=== PATIENT | female | born 1995 | race Hispanic/Latino ===

== ENCOUNTER 2024-02-01 08:17 | Emergency (ER) | payer OTHER ==
--- OUTSIDE RECORDS SUMMARY | 2024-02-01 08:23 | XMS REPORT | Continuity of Care Document ---
Author Name Unknown Address [address] [facility] [address] [place] [address] [facility] Address [address] [facility] [place] [address] Care Team Providers Care Business Development Associate Name Role Phone PCP, PATIENT DOES NOT HAVE A Primary Care Physic kang Unavailable MIRYAM BAKER Attending Clinician Unav DANIEL Gonzalez Attending Clinician Unavail able Samantha WHDaniel POOLE Attending Clinician + Kristin Vegas CNM Attending Clinician [phone] KRISTIN VEGAS Attending Clinician Unavailstuart bagley Lab, [place] Attending Clinician Unavailable [email or web address]_S Attending Clinician Unavaila kevyn Doctor Unassigned, [place] Attending Clinician U yovany Contreras SIDEWALK REPAIRER, Brittney Attending Clinician [phone] Visit, [place] Nurse Attending Clinician BRITTNEY Hercules Attending Clinician Unavailable Provider, [place] Temp Attending Clinician Kait Bryson Fernandes Attending Clinician + [phone] BRYSON JC Attending Clinician Unavailab CALLIE Bowers Attending Clinician Unavailable Miryam Baker MD Attending Clinician + Noe Castro MD, Asya Attending Clinician + Elise Marin MD Attending Clinician [phone] Fani MOORE, Uyen Attending Clinician [phone] Pob, [facility] Lab Main Attending Clinician Anila Sahni MD, Rosa Giron Attending Clinician [phone] ROSA SAHNI Attending Clinician Unavailable Ezra GARDINER, Callie Attending Clinician [phone] JEANIE ALANIS Attending Clinician Unavailkwaku Luo PT, Pamela Calhoun Attending Clinician Unavailab Jeanie Polanco MD Attending Clinician [phone] 2, [facility] Attending Clinician Unavailable 5, [facility] Attending Clinician Unavaila ble Ultrasound, [facility] Attending Clinician Unavaila ble Ultrasound, [facility] Attending Clinician Unavaila ble NOE CASTRO, BISHOP Attending Clinician Unav ailable Abiodun Munoz DO Attending Clinician [phone] ESTHER RUEDA Attending Clinician Unavailable MIRYAM BAKER Admitting Clinician Unav ailable [email or web address]_S Admitting Clinician UnavailMiryam Lau MD Admitting Clinician + ROSA SAHNI Admitting Clinician Unavailable ESTHER RUEDA Admitting Clinician Unavailable Payers Payer Name Policy Type Policy Number Effective Date Expirati on Date Source [facility] [id number] 2019 00:00:00 FAMILY [employer]ANNING PRATIMA [id number] 2023 00:00:00 MEDICAID [place] PENDING PENDING 2022 00:00:00 2022 00:00:00 [facility] [id number] EMERGENCY MEDICAID [id number] 2022 00:00:00 2022 00:00:00 Problems Condition Name Condition Details Condition Category Status Onset Date Resolution Date Last Treatment Date Treating Clinician Comments Source Dysuria Dysuria Disease Active 05-19 00:00: 00 [facility] care and examinatio n of lactating mother care and examinatio n of lactating mother Disease Active 705 00:00: 00 [facility] Anemia, Anemia, Disease Active 04-08 00:00: 00 [facility] History of bilateral tubal ligation History of bilateral tubal ligation Disease Active 04-08 00:00: 00 [facility] Pelvic cramping in antepartum period Pelvic cramping in antepartum period Disease Active 2020-10 0 00:00: 00 [facility] Left ovarian cyst Left ovarian cyst Disease Active 2020-10 0 00:00: 00 [facility] Well woman exam Well woman exam Disease Active 2017-10 00:00: 00 [facility] BMI 34.0-34.9, adult BMI 34.0-34.9, adult Disease Active 2017-10 00:00: 00 [facility] History of genital warts History of genital warts Disease Active 12-10 00:00: 00 [facility] Class 1 obesity due to excess calories with body mass index (BMI) of 34.0 to 34.9 in adult, unspecifie d whether serious comorbidit y present Class 1 obesity due to excess calories with body mass index (BMI) of 34.0 to 34.9 in adult, unspecifie d whether serious comorbidit y present Disease Active 12-10 00:00: 00 [facility] Class 1 obesity due to excess calories with body mass index (BMI) of 34.0 to 34.9 in adult, unspecifie d whether serious comorbidit y present Class 1 obesity due to excess calories with body mass index (BMI) of 34.0 to 34.9 in adult, unspecifie d whether serious comorbidit y present Disease Active 12-10 00:00: 00 [facility] Encounter for surveillan ce of other contracept ashkan Encounter for surveillan ce of other contracept ashkan Disease Active 03-28 00:00: 00 Overview: Formattin g of this note might be different from the original. 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 [facility] Asthma Asthma Disease Active 18 00:00: 00 Overview: Formattin g of this note might be different from the original. 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 [facility] Allergies, Adverse Reactions, Alerts Allergy Name Allergy Type Status Severity Reaction(s) Onset Date Inactive Date Treating Clinician Comments Source Penicill ins Propensi ty to adverse reaction s Active Rash 06-11 00:00: 00 And hives [facility] PENICILL INS Drug Class Active Rash 06-11 00:00: 00 [facility] POLLEN EXTRACTS DRUG INGREDI Active Other-Cmnt 06-11 00:00: 00 [facility] Penicill ins Propensi ty to adverse reaction s Active Rash 06-11 00:00: 00 And hives [facility] Pollen Extracts Propensi ty to adverse reaction s Active Other - See comments 06-11 00:00: 00 Sneezing and nose itch [facility] Social History Social Habit Start Date Stop Date Quantity Comments Source Gender identity [facility] Sexual orientation U [facility] ASSERTION [facility] Alcohol intake 2023-12-17 00:00:00 2023-12-17 00:00:00 Current non-drinker of alcohol (finding) [facility] History of Social function 2023-07-05 00:00:00 2023-07-05 00:00:00 [facility] Tobacco use and exposure 2023-07-05 00:00:00 2023-07-05 00:00:00 Smokeless tobacco non-user [facility] Exposure to SARS-CoV-2 (event) 2022-05-09 00:00:00 2022-05-19 13:02:00 Not sure [facility] Sex Assigned At 1995 00:00:00 1995 00:00:00 [facility] Smoking Status Start Date Stop Date Source Never smoked tobacco [facility] Medications Ordered Medication Name Filled Medication Name Start Date Stop Date Current Medication? Ordering Clinician Indication Dosage Frequency Signature (SIG) Comments Components Source fluconazole (DIFLUCAN) 150 mg tablet 3-13 00:00: 00 01-05 04:59 :00 No [id number] 150mg Take 1 tablet by mouth once now for 1 dose. [facility] cephALEXin 250 mg capsule - 00:00: 00 12-30 05:59 :00 Yes [id number] 250mg Take 1 capsule by mouth every 6 (six) hours for 10 days. [facility] metroNIDAZO LE 500 mg tablet 12-20 00:00: 00 12-21 05:59 :00 Yes [id number] 2000mg Take 4 tablets by mouth once now for 1 dose. [facility] clotrimazol e 1 % vaginal cream 2022-10 00:00: 00 12-17 00:00 :00 No [id number] 1{appli cator} Insert 1 Applicator into vagina at bedtime. [facility] cefTRIAXone (ROCEPHIN) injection 1,000 mg 2022-10 0-11 14:30: 00 08-04 13:50 :00 No [id number] 1000mg [facility] Nitrofurant oin&Nit. Macrocryst (MACROBID) 100 mg capsule 14 00:00: 00 07-19 04:59 :00 No [id number] 100mg Take 1 capsule by mouth in the morning and 1 capsule in the evening. Do all this for 10 days. [facility] metroNIDAZO LE 500 mg tablet 07-08 00:00: 00 07-16 04:59 :00 No [id number] 500mg Take 1 tablet by mouth in the morning and 1 tablet in the evening. Do all this for 7 days. [facility] phentermine 37.5 mg tablet 7-21 00:00: 00 12-17 00:00 :00 No 37.5mg Take 1 tablet by mouth in the morning. [facility] vit no.130-iron -folic ( VITAMIN) 6-15 00:00: 00 05-19 00:00 :00 No [id number] 1{tbl} Take 1 tablet by mouth daily. [facility] docusate 100 mg capsule 04-08 00:00: 00 05-19 00:00 :00 No [id number] 200mg Take 2 capsules by mouth once daily as needed for Constipati on. [facility] ferrous sulfate 325 mg (65 mg iron) tablet 04-08 00:00: 00 05-19 00:00 :00 No [id number] 325mg Take 1 tablet by mouth 2 (two) times daily. [facility] ibuprofen 600 mg tablet 04-08 00:00: 00 05-19 00:00 :00 No [id number] 600mg Take 1 tablet by mouth every 6 (six) hours as needed (Pain). Take with food or milk. [facility] HYDROcodone -acetaminop hen (NORCO) 5-325 mg tablet 04-08 00:00: 00 05-19 00:00 :00 No [id number] 1{tbl} Take 1 tablet by mouth every 6 (six) hours as needed for Pain (scale 7-10) for up to 5 doses. Indication s: acute pain [facility] albuterol (VENTOLIN HFA) 90 mcg/actuati on inhaler 01-08 00:00: 00 05-19 00:00 :00 No 2{puff} Inhale 2 Puffs every 6 (six) hours as needed for Wheezing or Shortness of Breath. [facility] Immunizations Ordered Immunization Name Filled Immunization Name Date Status Comments Source TDAP 2022-02-17 00:00:00 Completed [facility] TDAP 2022-02-17 00:00:00 Completed [facility] TDAP 2022-02-17 00:00:00 Completed [facility] TDAP 2022-02-17 00:00:00 Completed [facility] TDAP 2022-02-17 00:00:00 Completed [facility] TDAP 2022-02-17 00:00:00 Completed [facility] TDAP 2022-02-17 00:00:00 Completed [facility] TDAP 2022-02-17 00:00:00 Completed [facility] TDAP 2022-02-17 00:00:00 Completed [facility] SARS-COV-2 COVID-19 MODERNA VACCINE 2020-12-31 00:00:00 Completed [facility] SARS-COV-2 COVID-19 MODERNA 12+ YRS VACCINE 2020-12-31 00:00:00 Completed [facility] SARS-COV-2 COVID-19 MODERNA 12+ YRS VACCINE 2020-12-31 00:00:00 Completed [facility] SARS-COV-2 COVID-19 MODERNA 12+ YRS VACCINE 2020-12-31 00:00:00 Completed [facility] SARS-COV-2 COVID-19 MODERNA 12+ YRS VACCINE 2020-12-31 00:00:00 Completed [facility] SARS-COV-2 COVID-19 MODERNA 12+ YRS VACCINE 2020-12-31 00:00:00 Completed [facility] SARS-COV-2 COVID-19 MODERNA 12+ YRS VACCINE 2020-12-31 00:00:00 Completed [facility] SARS-COV-2 COVID-19 MODERNA 12+ YRS VACCINE 2020-12-31 00:00:00 Completed [facility] SARS-COV-2 COVID-19 MODERNA 12+ YRS VACCINE 2020-12-31 00:00:00 Completed [facility] SARS-COV-2 COVID-19 MODERNA VACCINE 2020-12-04 00:00:00 Completed [facility] SARS-COV-2 COVID-19 MODERNA 12+ YRS VACCINE 2020-12-04 00:00:00 Completed [facility] SARS-COV-2 COVID-19 MODERNA 12+ YRS VACCINE 2020-12-04 00:00:00 Completed [facility] SARS-COV-2 COVID-19 MODERNA 12+ YRS VACCINE 2020-12-04 00:00:00 Completed [facility] SARS-COV-2 COVID-19 MODERNA 12+ YRS VACCINE 2020-12-04 00:00:00 Completed [facility] SARS-COV-2 COVID-19 MODERNA 12+ YRS VACCINE 2020-12-04 00:00:00 Completed [facility] SARS-COV-2 COVID-19 MODERNA 12+ YRS VACCINE 2020-12-04 00:00:00 Completed [facility] SARS-COV-2 COVID-19 MODERNA 12+ YRS VACCINE 2020-12-04 00:00:00 Completed [facility] SARS-COV-2 COVID-19 MODERNA 12+ YRS VACCINE 2020-12-04 00:00:00 Completed [facility] TDAP 2020-01-15 00:00:00 Completed [facility] TDAP 2020-01-15 00:00:00 Completed [facility] TDAP 2020-01-15 00:00:00 Completed [facility] TDAP 2020-01-15 00:00:00 Completed [facility] TDAP 2020-01-15 00:00:00 Completed [facility] TDAP 2020-01-15 00:00:00 Completed [facility] TDAP 2020-01-15 00:00:00 Completed [facility] TDAP 2020-01-15 00:00:00 Completed [facility] TDAP 2020-01-15 00:00:00 Completed [facility] HPV9 2018-12-08 00:00:00 Completed [facility] HPV9 2018-12-08 00:00:00 Completed [facility] HPV9 2018-12-08 00:00:00 Completed [facility] HPV9 2018-12-08 00:00:00 Completed [facility] HPV9 2018-12-08 00:00:00 Completed [facility] HPV9 2018-12-08 00:00:00 Completed [facility] HPV9 2018-12-08 00:00:00 Completed [facility] HPV9 2018-12-08 00:00:00 Completed [facility] HPV9 2018-12-08 00:00:00 Completed [facility] HPV9 2018-08-06 00:00:00 Completed [facility] HPV9 2018-08-06 00:00:00 Completed [facility] HPV9 2018-08-06 00:00:00 Completed [facility] HPV9 2018-08-06 00:00:00 Completed [facility] HPV9 2018-08-06 00:00:00 Completed [facility] HPV9 2018-08-06 00:00:00 Completed [facility] HPV9 2018-08-06 00:00:00 Completed [facility] HPV9 2018-08-06 00:00:00 Completed [facility] HPV9 2018-08-06 00:00:00 Completed [facility] TDAP 2018-05-26 00:00:00 Completed [facility] TDAP 2018-05-26 00:00:00 Completed [facility] TDAP 2018-05-26 00:00:00 Completed [facility] TDAP 2018-05-26 00:00:00 Completed [facility] TDAP 2018-05-26 00:00:00 Completed [facility] TDAP 2018-05-26 00:00:00 Completed [facility] TDAP 2018-05-26 00:00:00 Completed [facility] TDAP 2018-05-26 00:00:00 Completed [facility] TDAP 2018-05-26 00:00:00 Completed [facility] HPV9 2017-11-05 00:00:00 Completed [facility] HPV9 2017-11-05 00:00:00 Completed [facility] HPV9 2017-11-05 00:00:00 Completed [facility] HPV9 2017-11-05 00:00:00 Completed [facility] HPV9 2017-11-05 00:00:00 Completed [facility] HPV9 2017-11-05 00:00:00 Completed [facility] HPV9 2017-11-05 00:00:00 Completed [facility] HPV9 2017-11-05 00:00:00 Completed [facility] HPV9 2017-11-05 00:00:00 Completed [facility] TDAP 2014-10-26 00:00:00 Completed [facility] TDAP 2014-10-26 00:00:00 Completed [facility] TDAP 2014-10-26 00:00:00 Completed [facility] TDAP 2014-10-26 00:00:00 Completed [facility] TDAP 2014-10-26 00:00:00 Completed [facility] TDAP 2014-10-26 00:00:00 Completed [facility] TDAP 2014-10-26 00:00:00 Completed [facility] TDAP 2014-10-26 00:00:00 Completed [facility] TDAP 2014-10-26 00:00:00 Completed [facility] TDAP 2009-07-02 00:00:00 Completed [facility] TDAP 2009-07-02 00:00:00 Completed [facility] TDAP 2009-07-02 00:00:00 Completed [facility] TDAP 2009-07-02 00:00:00 Completed [facility] TDAP 2009-07-02 00:00:00 Completed [facility] TDAP 2009-07-02 00:00:00 Completed [facility] TDAP 2009-07-02 00:00:00 Completed [facility] TDAP 2009-07-02 00:00:00 Completed [facility] TDAP 2009-07-02 00:00:00 Completed [facility] TDAP Unknown Completed [facility] TDAP Unknown Completed [facility] HPV9 Unknown Completed [facility] TDAP Unknown Completed [facility] HPV9 Unknown Completed [facility] HPV9 Unknown Completed [facility] TDAP Unknown Completed [facility] SARS-COV-2 COVID-19 MODERNA 12+ YRS VACCINE Unknown Completed [facility] SARS-COV-2 COVID-19 MODERNA 12+ YRS VACCINE Unknown Completed [facility] TDAP Unknown Completed [facility] TDAP Unknown Completed [facility] TDAP Unknown Completed [facility] HPV9 Unknown Completed [facility] TDAP Unknown Completed [facility] HPV9 Unknown Completed [facility] HPV9 Unknown Completed [facility] TDAP Unknown Completed [facility] SARS-COV-2 COVID-19 MODERNA 12+ YRS VACCINE Unknown Completed [facility] SARS-COV-2 COVID-19 MODERNA 12+ YRS VACCINE Unknown Completed [facility] TDAP Unknown Completed [facility] TDAP Unknown Completed [facility] TDAP Unknown Completed [facility] HPV9 Unknown Completed [facility] TDAP Unknown Completed [facility] HPV9 Unknown Completed [facility] HPV9 Unknown Completed [facility] TDAP Unknown Completed [facility] SARS-COV-2 COVID-19 MODERNA 12+ YRS VACCINE Unknown Completed [facility] SARS-COV-2 COVID-19 MODERNA 12+ YRS VACCINE Unknown Completed [facility] TDAP Unknown Completed [facility] TDAP Unknown Completed [facility] TDAP Unknown Completed [facility] HPV9 Unknown Completed [facility] TDAP Unknown Completed [facility] HPV9 Unknown Completed [facility] HPV9 Unknown Completed [facility] TDAP Unknown Completed [facility] SARS-COV-2 COVID-19 MODERNA 12+ YRS VACCINE Unknown Completed [facility] SARS-COV-2 COVID-19 MODERNA 12+ YRS VACCINE Unknown Completed [facility] TDAP Unknown Completed [facility] TDAP Unknown Completed [facility] TDAP Unknown Completed [facility] HPV9 Unknown Completed [facility] TDAP Unknown Completed [facility] HPV9 Unknown Completed [facility] HPV9 Unknown Completed [facility] TDAP Unknown Completed [facility] SARS-COV-2 COVID-19 MODERNA 12+ YRS VACCINE Unknown Completed [facility] SARS-COV-2 COVID-19 MODERNA 12+ YRS VACCINE Unknown Completed [facility] TDAP Unknown Completed [facility] TDAP Unknown Completed [facility] TDAP Unknown Completed [facility] HPV9 Unknown Completed [facility] TDAP Unknown Completed [facility] HPV9 Unknown Completed [facility] HPV9 Unknown Completed [facility] TDAP Unknown Completed [facility] SARS-COV-2 COVID-19 MODERNA 12+ YRS VACCINE Unknown Completed [facility] SARS-COV-2 COVID-19 MODERNA 12+ YRS VACCINE Unknown Completed [facility] TDAP Unknown Completed [facility] TDAP Unknown Completed [facility] TDAP Unknown Completed [facility] HPV9 Unknown Completed [facility] TDAP Unknown Completed [facility] HPV9 Unknown Completed [facility] HPV9 Unknown Completed [facility] TDAP Unknown Completed [facility] SARS-COV-2 COVID-19 MODERNA 12+ YRS VACCINE Unknown Completed [facility] SARS-COV-2 COVID-19 MODERNA 12+ YRS VACCINE Unknown Completed [facility] TDAP Unknown Completed [facility] TDAP Unknown Completed [facility] TDAP Unknown Completed [facility] HPV9 Unknown Completed [facility] TDAP Unknown Completed [facility] HPV9 Unknown Completed [facility] HPV9 Unknown Completed [facility] TDAP Unknown Completed [facility] SARS-COV-2 COVID-19 MODERNA 12+ YRS VACCINE Unknown Completed [facility] SARS-COV-2 COVID-19 MODERNA 12+ YRS VACCINE Unknown Completed [facility] TDAP Unknown Completed [facility] TDAP Unknown Completed [facility] TDAP Unknown Completed [facility] HPV9 Unknown Completed [facility] TDAP Unknown Completed [facility] HPV9 Unknown Completed [facility] HPV9 Unknown Completed [facility] TDAP Unknown Completed [facility] SARS-COV-2 COVID-19 MODERNA 12+ YRS VACCINE Unknown Completed [facility] SARS-COV-2 COVID-19 MODERNA 12+ YRS VACCINE Unknown Completed [facility] TDAP Unknown Completed [facility] TDAP Unknown Completed [facility] TDAP Unknown Completed [facility] HPV9 Unknown Completed [facility] TDAP Unknown Completed [facility] HPV9 Unknown Completed [facility] HPV9 Unknown Completed [facility] TDAP Unknown Completed [facility] SARS-COV-2 COVID-19 MODERNA 12+ YRS VACCINE Unknown Completed [facility] SARS-COV-2 COVID-19 MODERNA 12+ YRS VACCINE Unknown Completed [facility] [facility] [place] [facility] Unknown Completed [facility] TDAP Unknown [facility]pleted [facility] [place] TDAP Unknown [facility]pleted [facility] HPV9 Unknown Completed [facility] [place] TDAP Unknown Completed [facility] HPV9 Unknown Completed [facility] HPV9 Unknown Completed [facility] [place] TDAP Unknown Completed [facility] [place] SARS-COV-2 COVID-19 MODERNA 12+ YRS VACCINE Unknown Completed [facility] [place] SARS-COV-2 COVID-19 MODERNA 12+ YRS VACCINE Unknown Completed [facility] TDAP Unknown Completed [facility] TDAP Unknown Completed [facility] TDAP Unknown Completed [facility] HPV9 Unknown Completed [facility] TDAP Unknown [facility]pleted [facility] HPV9 Unknown Completed [facility] HPV9 Unknown Completed [facility] [place] TDAP Unknown Completed [facility] [place] SARS-COV-2 COVID-19 MODERNA 12+ YRS VACCINE Unknown Completed [facility] [place] SARS-COV-2 COVID-19 MODER[place] 12+ YRS VACCINE Unknown Completed [facility] TDAP Unknown Completed [facility] [place] TDAP Unknown Completed [facility] [place] TDAP Unknown [facility]pleted [facility] HPV9 Unknown Completed [facility] [place] TDAP Unknown Completed [facility] [place] HPV9 Unknown Completed [facility] [place] HPV9 Unknown Completed [facility] [place] TDAP Unknown Completed [facility] [place] SARS-COV-2 COVID-19 MODERNA 12+ YRS VACCINE Unknown Completed [facility] [place] SARS-COV-2 COVID-19 MODERNA 12+ YRS VACCINE Unknown Completed [facility] [place] TDAP Unknown Completed [facility] TDAP Unknown Completed [facility] TDAP Unknown Completed [facility] HPV9 Unknown Completed [facility] [place] TDAP Unknown Completed [facility] HPV9 Unknown Completed [facility] HPV9 Unknown Completed [facility] TDAP Unknown Completed [facility] [place] SARS-COV-2 COVID-19 MODERNA 12+ YRS VACCINE Unknown Completed [facility] [place] SARS-COV-2 COVID-19 MODERNA 12+ YRS VACCINE Unknown Completed [facility] TDAP Unknown Completed [facility] TDAP Unknown Completed [facility] TDAP Unknown Completed [facility] HPV9 Unknown Completed [facility] [place] TDAP Unknown Completed [facility] [place] HPV9 Unknown Completed [facility] HPV9 Unknown Completed [facility] TDAP Unknown Completed [facility] [place] SARS-COV-2 COVID-19 MODERNA 12+ YRS VACCINE Unknown Completed [facility] [place] SARS-COV-2 COVID-19 MODERNA 12+ YRS VACCINE Unknown Completed [facility] [place] TDAP Unknown Completed [facility] TDAP Unknown Completed [facility] TDAP Unknown Completed [facility] HPV9 Unknown Completed [facility] [place] TDAP Unknown Completed [facility] [place] HPV9 Unknown Completed [facility] HPV9 Unknown Completed [facility] TDAP Unknown Completed [facility] [place] SARS-COV-2 COVID-19 MODERNA 12+ YRS VACCINE Unknown Completed [facility] [place] SARS-COV-2 COVID-19 MODERNA 12+ YRS VACCINE Unknown Completed [facility] TDAP Unknown Completed [facility] [place] TDAP Unknown Completed [facility] TDAP Unknown Completed [facility] HPV9 Unknown Completed [facility] [place] TDAP Unknown Completed [facility] [place] HPV9 Unknown Completed [facility] HPV9 Unknown Completed [facility] [place] TDAP Unknown Completed [facility] [place] SARS-COV-2 COVID-19 MODERNA 12+ YRS VACCINE Unknown Completed [facility] [place] SARS-COV-2 COVID-19 MODERNA 12+ YRS VACCINE Unknown Completed [facility] [place] TDAP Unknown Completed [facility] [place] TDAP Unknown Completed [facility] [place] TDAP Unknown Completed [facility] HPV9 Unknown Completed [facility] [place] TDAP Unknown Completed [facility] [place] HPV9 Unknown Completed [facility] HPV9 Unknown Completed [facility] TDAP Unknown Completed [facility] [place] SARS-COV-2 COVID-19 MODERNA 12+ YRS VACCINE Unknown Completed [facility] [place] SARS-COV-2 COVID-19 MODERNA 12+ YRS VACCINE Unknown Completed [facility] TDAP Unknown Completed [facility] TDAP Unknown Completed [facility] TDAP Unknown Completed [facility] HPV9 Unknown Completed [facility] [place] TDAP Unknown Completed [facility] [place] HPV9 Unknown Completed [facility] HPV9 Unknown Completed [facility] TDAP Unknown Completed [facility] [place] SARS-COV-2 COVID-19 MODERNA 12+ YRS VACCINE Unknown Completed [facility] [place] SARS-COV-2 COVID-19 MODERNA 12+ YRS VACCINE Unknown Completed [facility] TDAP Unknown Completed [facility] [place] TDAP Unknown Completed [facility] TDAP Unknown Completed [facility] HPV9 Unknown Completed [facility] [place] TDAP Unknown Completed [facility] HPV9 Unknown Completed [facility] HPV9 Unknown Completed [facility] TDAP Unknown Completed [facility] [place] SARS-COV-2 COVID-19 MODERNA 12+ YRS VACCINE Unknown Completed [facility] [place] SARS-COV-2 COVID-19 MODERNA 12+ YRS VACCINE Unknown Completed [facility] TDAP Unknown Completed [facility] TDAP Unknown Completed [facility] TDAP Unknown Completed [facility] HPV9 Unknown Completed [facility] [place] TDAP Unknown Completed [facility] HPV9 Unknown Completed [facility] HPV9 Unknown Completed [facility] TDAP Unknown Completed [facility] [place] SARS-COV-2 COVID-19 MODERNA 12+ YRS VACCINE Unknown Completed [facility] [place] SARS-COV-2 COVID-19 MODERNA 12+ YRS VACCINE Unknown Completed [facility] TDAP Unknown Completed [facility] TDAP Unknown Completed [facility] TDAP Unknown Completed [facility] HPV9 Unknown Completed [facility] [place] TDAP Unknown Completed [facility] HPV9 Unknown Completed [facility] HPV9 Unknown Completed [facility] TDAP Unknown Completed [facility] [place] SARS-COV-2 COVID-19 MODERNA 12+ YRS VACCINE Unknown Completed [facility] [place] SARS-COV-2 COVID-19 MODERNA 12+ YRS VACCINE Unknown Completed [facility] TDAP Unknown Completed [facility] TDAP Unknown Completed [facility] TDAP Unknown Completed [facility] HPV9 Unknown Completed [facility] [place] TDAP Unknown Completed [facility] HPV9 Unknown Completed [facility] HPV9 Unknown Completed [facility] TDAP Unknown Completed [facility] [place] SARS-COV-2 COVID-19 MODERNA 12+ YRS VACCINE Unknown Completed [facility] SARS-COV-2 COVID-19 MODERNA 12+ YRS VACCINE Unknown Completed [facility] TDAP Unknown Completed [facility] Vital Signs Vital Name Observation Time Observation Value Comments S ource Systolic blood pressure 2024-01-05 12:55:00 105 mm[Hg] [place] [facility] Diastolic blood pressure 2024-01-05 12:55:00 70 mm[Hg] [place] [facility] Heart rate 2024-01-05 12:55:00 70 /[facility] 2024-01-05 12:55:00 36.06 Kayla [facility] Respiratory rate 2024-01-05 12:55:00 16 /min [facility] Body height 2024-01-05 12:55:00 152.4 cm [facility] Body weight 2024-01-05 12:55:00 64.003 kg [facility] BMI 2024-01-05 12:55:00 27.56 kg/m2 [facility] Systolic blood pressure 2023-12-17 15:29:00 113 mm[Hg] [facility] Diastolic blood pressure 2023-12-17 15:29:00 66 mm[Hg] [facility] Heart rate 2023-12-17 15:29:00 78 /min Un[facility] Body temperature 2023-12-17 15:29:00 36.06 Kayla [facility] Respiratory rate 2023-12-17 15:29:00 18 /min [facility] Body height 2023-12-17 15:29:00 152.4 cm [facility] Body weight 2023-12-17 15:29:00 58.786 kg [facility] BMI 2023-12-17 15:29:00 25.31 kg/m2 [facility] Systolic blood pressure 2023-10-04 19:13:00 113 mm[Hg] [facility] Diastolic blood pressure 2023-10-04 19:13:00 69 mm[Hg] [facility] Heart rate 2023-10-04 19:13:00 85 /min [facility] Body temperature 2023-10-04 19:13:00 36.61 Kayla [facility] Respiratory rate 2023-10-04 19:13:00 18 /min [facility] Body height 2023-10-04 19:13:00 152.4 cm [facility] Body weight 2023-10-04 19:13:00 63.05 kg [facility] BMI 2023-10-04 19:13:00 27.15 kg/m2 [facility] Systolic blood pressure 2023-08-04 13:16:00 126 mm[Hg] [facility] Diastolic blood pressure 2023-08-04 13:16:00 82 mm[Hg] [facility] Heart rate 2023-08-04 13:16:00 82 /min [facility] Body temperature 2023-08-04 13:16:00 36.39 Kayla [facility] Respiratory rate 2023-08-04 13:16:00 18 /min [facility] Body height 2023-08-04 13:16:00 152.4 cm [facility] Body weight 2023-08-04 13:16:00 72.122 kg [facility] BMI 2023-08-04 13:16:00 31.05 kg/m2 [facility] Systolic blood pressure 2023-07-26 13:20:00 115 mm[Hg] [place] [facility] Diastolic blood pressure 2023-07-26 13:20:00 80 mm[Hg] [facility] Heart rate 2023-07-26 13:20:00 93 /min [facility] Body temperature 2023-07-26 13:20:00 36.94 Kayla [facility] Respiratory rate 2023-07-26 13:20:00 18 /min [facility] Body height 2023-07-26 13:20:00 152.4 cm [facility] Body weight 2023-07-26 13:20:00 71.124 kg [facility] BMI 2023-07-26 13:20:00 30.62 kg/m2 [facility] Systolic blood pressure 2023-07-08 20:15:00 123 mm[Hg] [facility] Diastolic blood pressure 2023-07-08 20:15:00 76 mm[Hg] [facility] Heart rate 2023-07-08 20:15:00 91 /min [facility] Body temperature 2023-07-08 20:15:00 36.56 Kayla [facility] Respiratory rate 2023-07-08 20:15:00 18 /min [facility] Body weight 2023-07-08 20:15:00 71.396 kg [facility] BMI 2023-07-08 20:15:00 30.74 kg/m2 [facility] Systolic blood pressure 2023-07-05 14:00:00 128 mm[Hg] [facility] Diastolic blood pressure 2023-07-05 14:00:00 83 mm[Hg] [facility] Heart rate 2023-07-05 14:00:00 72 /min [facility] Body temperature 2023-07-05 14:00:00 36.11 Kayla [facility] Respiratory rate 2023-07-05 14:00:00 18 /min [facility] Body height 2023-07-05 14:00:00 152.4 cm [facility] Body weight 2023-07-05 14:00:00 74.447 kg [facility] BMI 2023-07-05 14:00:00 32.05 kg/m2 [facility] Systolic blood pressure 2022-05-19 18:04:00 112 mm[Hg] [facility] Diastolic blood pressure 2022-05-19 18:04:00 77 mm[Hg] [facility] Heart rate 2022-05-19 18:04:00 89 /min [facility] 2022-05-19 18:04:00 36.89 Kayla [facility] Respiratory rate 2022-05-19 18:04:00 18 /min [facility] Body height 2022-05-19 18:04:00 152.4 cm [facility] Body weight 2022-05-19 18:04:00 80.015 kg [facility] BMI 2022-05-19 18:04:00 34.45 kg/m2 [facility] Procedures Procedure Date / Time Performed Performing Clinician Source GC & CHLAMYDIA AMPLIFIED ASSAY 2023-10-04 21:12:00 Daniel Singh [facility] PAP SMEAR-LIQUID BASED-CP 2023-10-04 21:12:00 Daniel Singh [facility] URINE CULTURE 2023-09-01 18:16:00 Daniel Singh [facility] EXTERNAL PROVIDER RECORDS 2023-08-03 05:01:00 Doctor Unassigned, [place] [facility] EXTERNAL PROVIDER RECORDS 2023-07-16 05:01:00 Doctor Unassigned, [place] [facility] POCT TEST 2023-07-05 16:10:00 Brittney Contreras [facility] THYROID STIMULATING HORMONE 2023-07-05 15:30:00 Brittney Contreras [facility] COMP. METABOLIC PANEL ([id number]) 2023-07-05 15:30:00 Brittney Contreras [facility] CBC WITH DIFF 2023-07-05 15:30:00 Brittney Contreras [facility] HEPATITIS B SURFACE ANTIGEN 2023-07-05 15:30[facility] 2023-07-05 [facility]:30[facility]-AB WITH REFLEX 2023-07-05 15:30:00 Brittney Contreras [facility] POCT URINALYSIS W/O SPECIFIC GRAVITY 2023-07-05 14:04:00 Brittney Contreras [facility] CONSENT/REFUSAL FOR DIAGNOSIS AND TREATMENT 2023-07-05 13:14:22 Doctor Unassigned, [place] [facility] POCT URINALYSIS W/O SPECIFIC GRAVITY 2022-05-19 18:09:00 Bryson Jc [facility] Encounters Start Date/Time End Date/Time Encounter Type Admission Type Attending Clinicians Care Facility Care Department Encounter ID Source 2022-04-06 14:04:00 Inpatient P MIRYAM BKAER [facility] [place] [id number] [facility] 2021-08-21 22:49:19 Outpatient [facility] [id number] [facility] 2024-01-05 07:45:00 2024-01-05 08:22:23 Outpatient R DANIEL SINGH [facility] [id number] [facility] 2024-01-05 07:45:00 2024-01-05 08:22:23 Office Visit Daniel Singh [facility] .840.114 350.1.13.10 4.2.7.2.686 [id number] 107 [id number] [facility] 2023-12-20 00:00:00 2023-12-20 00:00:00 Telephone Kristin Vegas [facility] .840.114 350.1.13.10 4.2.7.2.686 [id number] 107 [id number] [facility] 2023-12-17 09:30:00 2023-12-17 09:56:30 Outpatient R KRISTIN VEGAS [facility] [id number] [facility] 2023-12-17 09:30:00 2023-12-17 09:56:30 Office Visit Kristin Vegas [facility] .840.114 350.1.13.10 4.2.7.2.686 [id number] 107 [id number] [facility] 2023-10-04 13:30:00 2023-10-04 13:54:08 Outpatient R DANIEL SINGH [facility] [id number] [facility] 2023-10-04 13:30:00 2023-10-04 13:54:08 Office Visit Daniel Singh [facility] .840.114 350.1.13.10 4.2.7.2.686 [id number] [facility] 2023-09-01 08:30:00 2023-09-01 08:42:49 Outpatient R DANIEL SINGH [facility] [id number] [facility] 2023-09-01 08:30:00 2023-09-01 08:42:49 Supervisor Sample Visit Lab, Ang-Rmchp Daniel Singh [facility] [id number] 350.1.13.10 4.2.7.2.686 [id number] [facility] 2023-09-01 00:00:00 2023-09-01 00:00:00 Telephone Daniel Singh [facility] & CHILD [facility] 1.2840.114 350.1.13.10 4.2.7.2.686 [id number] [facility] 2023-08-24 00:00:00 2023-08-24 00:00:00 Outpatient [id number] [email or web address]_S [facility] [id number] [facility] 2023-08-04 08:00:00 2023-08-04 09:05:10 Outpatient R DANIEL SINGH [facility] [id number] [facility] 2023-08-04 08:00:00 2023-08-04 09:05:10 Office Visit Daniel Singh [facility] & CHILD [facility] 1.840.114 350.1.13.10 4.2.7.2.686 [id number] [facility] 2023-08-03 00:00:00 2023-08-03 00:00:00 Orders Only Doctor Unassigned, [place] [facility] 1.840.114 350.1.13.10 4.2.7.2.686 [id number] [facility] 2023-08-02 00:00:00 2023-08-02 00:00:00 Telephone Daniel Singh [facility] & CHILD [facility] 1.2840.114 350.1.13.10 4.2.7.2.686 [id number] 107 [id number] [facility] 2023-07-30 00:00:00 2023-07-30 00:00:00 Telephone Daniel Singh [facility] & CHILD [facility] 1.2.840.114 350.1.13.10 4.2.7.2.686 [id number] 107 [id number] [facility] 2023-07-26 08:00:00 2023-07-26 08:59:25 Outpatient R DANIEL SINGH [facility] [id number] [facility] 2023-07-26 08:00:00 2023-07-26 08:59:25 Office Visit Daniel Singh [facility] NET[facility] & CHILD [facility] 1.2.840.114 350.1.13.10 4.2.7.2.686 [id number] [facility] 2023-07-21 00:00:00 2023-07-21 00:00:00 Telephone Daniel Singh [facility] & CHILD [facility] 1.2.840.114 350.1.13.10 4.2.7.2.686 [id number] [facility] 2023-07-21 00:00:00 2023-07-21 00:00:00 Telephone Daniel Singh [facility]WORK [facility] 1.2.840.114 350.1.13.10 4.2.7.2.686 [id number] [facility] 2023-07-16 00:00:00 2023-07-16 00:00:00 Orders Only Doctor Unassigned, [place] [facility] 1.2840.114 350.1.13.10 4.2.7.2.686 [id number] [facility] 2023-07-13 00:00:00 2023-07-13 00:00:00 Telephone Brittney Contreras [facility] & CHILD [facility] 1.2840.114 350.1.13.10 4.2.7.2.686 [id number] [facility] 2023-07-08 15:00:00 2023-07-08 15:15:55 Outpatient R KRISTIN VEGAS [facility] [id number] [facility] 2023-07-08 15:00:00 2023-07-08 15:15:55 Nurse Visit Visit, [place] Nurse Kristin Vegas [facility]WORK [facility] 1.2.840.114 350.1.13.10 4.2.7.2.686 [id number] 107 [id number] [facility] 2023-07-08 00:00:00 2023-07-08 00:00:00 Telephone Daniel Singh [facility] 1.2.840.114 350.1.13.10 4.2.7.2.686 [id number] [facility] 2023-07-06 00:00:00 2023-07-06 00:00:00 Telephone Daniel Singh [facility] 1.2.840.114 350.1.13.10 4.2.7.2.686 [id number] [facility] 2023-07-06 00:00:00 2023-07-06 00:00:00 Telephone Daniel Singh [facility] 1.2.840.114 350.1.13.10 4.2.7.2.686 [id number] [facility] 2023-07-05 09:00:00 2023-07-05 10:28:51 Outpatient BRITTNEY ROSADO [facility] [id number] [facility] 2023-07-05 09:00:00 2023-07-05 10:28:51 Office Visit Provider, [place] Contreras Brittney [facility] NETWORK [facility] 1.84.114 350.1.13.10 4.2.7.2.686 [id number] [facility] 2023-07-05 00:00:00 2023-07-05 00:00:00 Orders Only Doctor Unassigned, [place] [facility] 1.84.114 350.1.13.10 4.2.7.2.686 [id number] [facility] 2022-05-19 12:45:00 2022-05-19 13:29:22 Office Visit Bryson Jc [facility] NETWORK [facility] & CHILD [facility] 1.840.114 350.1.13.10 4.2.7.2.686 [id number] [facility] 2022-05-19 12:45:00 2022-05-19 13:29:22 Outpatient BRYSON COUGHLIN [facility] [id number] [facility] 2022-05-19 12:45:00 2022-05-19 12:45:00 Outpatient R BRYSON JC [facility] [id number] [facility] 2022-04-28 08:00:00 2022-04-28 08:37:43 Outpatient R DANIEL SINGH [facility] [id number] [facility] 2022-04-28 08:00:00 2022-04-28 08:37:43 Office Visit Daniel Singh [facility] NET[facility] & CHILD [facility] 1.840.114 350.1.13.10 4.2.7.2.686 [id number] [facility] 2022-04-09 14:00:00 2022-04-09 14:00:00 Outpatient CALLIE [facility]EN [facility] [id number] [facility] 2022-04-06 14:04:00 2022-04-08 13:14:00 Inpatient P MIRYAM BAKER [facility]LINE [id number] [facility] 2022-04-06 14:04:00 2022-04-08 13:14:00 Hospital Encounter Miryam Baker [facility] 1.2.840.114 350.1.13.10 4.2.7.2.686 [id number] [facility] 2022-04-06 14:04:00 2022-04-08 13:14:00 Inpatient P MIRYAM BAKER [facility] [id number] [facility] 2022-04-07 06:55:00 2022-04-07 08:11:00 Surgery Noe kruger [facility] 1.2.840.114 350.1.13.10 4.2.7.2.686 [id number] [facility] 2022-04-06 19:20:00 2022-04-07 07:49:00 [facility] 1.2.840.114 350.1.13.10 4.2.7.2.686 [id number] [facility] 2022-04-06 14:04:00 2022-04-06 14:04:00 Inpatient P MIRYAM BAKER [facility] [id number] [facility] 2022-04-02 12:15:00 2022-04-02 12:30:00 Supervisor Sample Visit Pob, Adc Lab Rosa Menjivar [facility] 1.2.840.114 350.1.13.10 4.2.7.2.686 [id number] [facility] 2022-04-02 12:15:00 2022-04-02 12:15:00 Outpatient R ROSA SAHNI [facility] [id number] [facility] 2022-04-02 11:00:00 2022-04-02 12:01:44 Routine Visit Rosa Sahni [facility] 1.2.840.114 350.1.13.10 4.2.7.2.686 [id number] [facility] 2022-03-25 14:30:00 2022-03-25 14:30:00 Outpatient R [facility] [id number] [facility] 2022-03-25 14:30:00 2022-03-25 14:30:00 Outpatient R [facility] [id number] [facility] 2022-03-25 00:00:00 2022-03-25 00:00:00 Abstract Rosa Sahni [facility] 1.2.840.114 350.1.13.10 4.2.7.2.686 [id number] [facility] 2022-03-25 00:00:00 2022-03-25 00:00:00 Telephone Rosa Sahni [facility] 1.2.840.114 350.1.13.10 4.2.7.2.686 [id number] [facility] 2022-03-19 13:15:00 2022-03-19 14:01:42 Outpatient R EZRA CALLIE [facility] [id number] [facility] 2022-03-19 13:15:00 2022-03-19 14:01:42 Routine Visit Callie Bliss [facility] 1.2.840.114 350.1.13.10 4.2.7.2.686 [id number] [facility] 2022-03-18 13:00:00 2022-03-18 13:00:00 Outpatient R JEANIE ALANIS [facility] [id number] [facility] 2022-03-10 14:00:00 2022-03-10 16:03:18 Ancillary Visit Pamela Luo Craig L [facility] 1.2.840.114 350.1.13.10 4.2.7.2.686 [id number] [facility] 2022-03-10 14:00:00 2022-03-10 16:03:18 Outpatient JEANIE MARIE [facility] [id number] [facility] 2022-03-06 00:00:00 2022-03-06 00:00:00 Patient Secure Msg Doctor Unassigned, [place] [facility] 1.2.840.114 350.1.13.10 4.2.7.2.686 [id number] [facility] 2022-03-05 16:00:00 2022-03-05 17:10:09 Outpatient ROSA CARO [facility] [id number] [facility] 2022-03-05 16:00:00 2022-03-05 17:10:09 Routine Visit Rosa Sahni [facility] 1.2.840.114 350.1.13.10 4.2.7.2.686 [id number] [facility] 2022-02-23 08:00:00 2022-02-23 08:15:00 Supervisor Sample Visit 2, Adc Lab Eliud [facility] 1.2.840.114 350.1.13.10 4.2.7.2.686 [id number] [facility] 2022-02-23 08:00:00 2022-02-23 08:00:00 Outpatient ROSA CARO [facility] [id number] [facility] 2022-02-18 09:30:00 2022-02-18 09:30:00 Outpatient BRYSON COUGHLIN [facility] [id number] [facility] 2022-02-18 07:30:00 2022-02-18 07:45:00 Supervisor Sample Visit Pob, Adc Lab Main EliudRosa [facility] 1.114 350.1.13.10 4.2.7.2.686 [id number] [facility] 2022-02-18 07:30:00 2022-02-18 07:30:00 Outpatient R ROSA SAHNI [facility] [id number] [facility] 2022-02-18 00:00:00 2022-02-18 00:00:00 Case Management Ezra [facility] 1.114 350.1.13.10 4.2.7.2.686 [id number] 134 [id number] [facility] 2022-02-17 16:15:00 2022-02-17 17:16:47 Outpatient R EZRA [facility] [id number] [facility] 2022-02-17 16:15:00 2022-02-17 17:16:47 Routine Visit Callie Bliss [facility] 1..114 350.1.13.10 4.2.7.2.686 [id number] 134 [id number] [facility] 2022-02-17 00:00:00 2022-02-17 00:00:00 Orders Only Doctor Unassigned, [place] [facility] 1..114 350.1.13.10 4.2.7.2.686 [id number] [facility] 2022-02-06 09:15:00 2022-02-06 10:00:00 Supervisor Sample Visit 5, [facility] Us Room Rosa Sahni Mack [facility] 1..114 350.1.13.10 4.2.7.2.686 [id number] [facility] 2022-02-06 09:15:00 2022-02-06 09:15:00 Outpatient R ROSA SAHNI [facility] [id number] [facility] 2022-02-04 15:30:00 2022-02-04 16:20:52 Supervisor Sample Visit Ultrasound, Belkis Baker Miryam Avery [facility] NETWORK [facility] 1..114 350.1.13.10 4.2.7.2.686 [id number] [facility] 2022-02-04 15:30:00 2022-02-04 15:30:00 Outpatient R SAMUELPRISCILAGay [facility] [id number] [facility] 2022-01-28 11:15:00 2022-01-28 11:15:00 Outpatient R ROSA SAHNI [facility] [id number] [facility] 2022-01-01 11:15:00 2022-01-01 11:15:00 Outpatient ROSA CARO [facility] [id number] [facility] 2021-12-31 16:15:00 2021-12-31 16:38:06 Outpatient R EZRA [facility] [id number] [facility] 2021-12-31 16:15:00 2021-12-31 16:38:06 Routine Visit Callie Bliss [facility] 1.84.114 350.1.13.10 4.2.7.2.686 [id number] [facility] 2021-12-09 11:00:00 2021-12-09 12:00:29 Supervisor Sample Visit Ultrasound, Asya Jordan [facility] 1.2840.114 350.1.13.10 4.2.7.2.686 [id number] 134 [id number] [facility] 2021-12-09 11:00:00 2021-12-09 11:00:00 Outpatient P NOE Kruger BISHOP [facility] [id number] [facility] 2021-11-25 00:00:00 2021-11-25 00:00:00 Telephone Rosa Sahni [facility] 1.2840.114 350.1.13.10 4.2.7.2.686 [id number] [facility] 2021-11-14 10:00:00 2021-11-14 10:15:00 Supervisor Sample Visit 2, Adc Lab Rosa Sahni [facility] 1.2.840.114 350.1.13.10 4.2.7.2.686 [id number] [facility] 2021-11-14 10:00:00 2021-11-14 10:00:00 Outpatient R ROSA SAHNI [facility] [id number] [facility] 2021-11-14 00:00:00 2021-11-14 00:00:00 Orders Only Doctor Unassigned, [place] [facility] 1.840.114 350.1.13.10 4.2.7.2.686 [id number] [facility] 2021-11-11 13:30:00 2021-11-11 13:49:21 Outpatient R ROSA SAHNI [facility] [id number] [facility] 2021-11-11 13:30:00 2021-11-11 13:49:21 Routine Visit Rosa Sahni [facility] 1.2840.114 350.1.13.10 4.2.7.2.686 [id number] [facility] 2021-11-05 11:00:00 2021-11-05 11:00:00 Outpatient R ROSA SAHNI [facility] [id number] [facility] 2021-10-21 00:00:00 2021-10-21 00:00:00 Telephone Rosa Sahni [facility] 1.2.840.114 350.1.13.10 4.2.7.2.686 [id number] 134 [id number] [facility] 2021-10-15 00:00:00 2021-10-15 00:00:00 Telephone Rosa Sahni [facility] 1.2.840.114 350.1.13.10 4.2.7.2.686 [id number] 134 [id number] [facility] 2021-10-15 00:00:00 2021-10-15 00:00:00 Telephone Rosa Sahni [facility] 1.2.840.114 350.1.13.10 4.2.7.2.686 [id number] 134 [id number] [facility] 2021-10-07 12:29:12 2021-10-07 12:44:12 Supervisor Sample Visit Pob, Adc Lab Main Rosa Sahni [facility] 1.2.840.114 350.1.13.10 4.2.7.2.686 [id number] [facility] 2021-10-07 12:30:00 2021-10-07 12:30:00 Outpatient R ROSA SAHNI [facility] [id number] [facility] 2021-10-07 11:35:13 2021-10-07 12:13:54 Routine Visit Callie Bliss [facility] 1.2.840.114 350.1.13.10 4.2.7.2.686 [id number] [facility] 2021-10-07 00:00:00 2021-10-07 00:00:00 Orders Only Doctor Unassigned, [place] [facility] 1.2840.114 350.1.13.10 4.2.7.2.686 [id number] [facility] 2021-09-12 08:00:00 2021-09-12 08:00:00 Outpatient R [facility] [id number] [facility] 2021-09-09 13:00:00 2021-09-09 13:36:41 Outpatient R ROSA SAHNI [facility] [id number] [facility] 2021-09-09 13:00:00 2021-09-09 13:36:41 Outpatient R ROSA SAHNI [facility] [id number] [facility] 2021-09-09 12:46:27 2021-09-09 13:36:41 Routine Visit Rosa Sahni [facility] 1..840.114 350.1.13.10 4.2.7.2.686 [id number] [facility] 2021-09-03 16:42:14 2021-09-03 23:59:00 Outpatient R ROSA SAHNI [facility] RAD [id number] [facility] 2021-09-03 16:42:14 2021-09-03 23:59:00 Hospital Encounter Rosa Sahni [facility] 1.2.840.114 350.1.13.10 4.2.7.2.686 [id number] [facility] 2021-08-26 00:00:00 2021-08-26 00:00:00 Case Management Rosa Sahni [facility]ILD[facility] 1.2.840.114 350.1.13.10 4.2.7.2.686 [id number] 134 [id number] [facility] 2021-08-25 13:21:58 2021-08-25 13:36:58 Supervisor Sample Visit Pob, Adc Lab Main Rosa Sahni [facility]ILD[facility] 1.2840.114 350.1.13.10 4.2.7.2.686 [id number] [facility] 2021-08-25 13:00:00 2021-08-25 13:00:00 Outpatient R ROSA SAHNI [facility] [id number] [facility] 2021-08-23 09:00:00 2021-08-23 09:00:00 Outpatient R [facility] [id number] [facility] 2021-08-20 15:29:22 2021-08-20 15:33:16 Supervisor Sample Visit 2, Adc Lab Rosa Sahni [facility] Building 1.2.840.114 350.1.13.10 4.2.7.2.686 [id number] [facility] 2021-08-20 14:02:53 2021-08-20 15:25:50 Initial Visit Rosa Sahni [facility] 1.2840.114 350.1.13.10 4.2.7.2.686 [id number] [facility] 2021-08-20 14:30:00 2021-08-20 14:30:00 Outpatient R ROSA SAHNI [facility] [id number] [facility] 2021-08-20 00:00:00 2021-08-20 00:00:00 Orders Only Doctor Unassigned, [place] [facility] 1.2840.114 350.1.13.10 4.2.7.2.686 [id number] [facility] 2021-01-14 00:00:00 2021-01-14 00:00:00 Patient Outreach Abiodun Munoz [facility] 1.2840.114 350.1.13.10 4.2.7.2.686 [id number] [facility] 2020-10-09 08:29:03 2020-10-09 08:53:03 Office Visit Bryson Jc [facility] NETWORK [facility] CHILD [facility] 1.2.840.114 350.1.13.10 4.2.7.2.686 [id number] [facility] 2020-10-09 08:15:00 2020-10-09 08:15:00 Outpatient BRYSON COUGHLIN [facility] [id number] [facility] 2020-05-06 10:30:00 2020-05-06 10:30:00 Outpatient R BRYSON JC [facility] [id number] [facility] 2020-05-06 07:50:31 2020-05-06 08:42:01 Office Visit Bryson Jc [facility] NETWORK [facility] CHILD [facility] 1..840.114 350.1.13.10 4.2.7.2.686 [id number] [facility] 2020-05-06 07:45:00 2020-05-06 07:45:00 Outpatient R BRYSON JC [facility] [id number] [facility] 2020-04-12 10:00:00 2020-04-12 10:00:00 Outpatient R BRYSON JC [facility] [id number] [facility] 2020-04-12 09:42:17 2020-04-12 09:57:17 Routine Visit Bryson Jc [facility] NETWORK [facility] CHILD [facility] 1..840.114 350.1.13.10 4.2.7.2.686 [id number] [facility] 2020-03-27 09:30:00 2020-03-27 09:30:00 Outpatient R BRYSON JC [facility] [id number] [facility] 2020-03-22 00:00:00 2020-03-22 00:00:00 Telephone Daniel Singh Sumaya [facility] NETWORK [facility] CHILD [facility] 1.2.840.114 350.1.13.10 4.2.7.2.686 [id number] [facility] 2020-03-19 12:52:40 2020-03-19 13:30:43 Routine Visit Bryson Jc [facility] NETWORK [facility]ILD [facility] 1.2.840.114 350.1.13.10 4.2.7.2.686 [id number] [facility] 2020-03-19 12:45:00 2020-03-19 12:45:00 Outpatient R BRYSON JC [facility] [id number] [facility] 2020-03-11 10:25:06 2020-03-11 10:40:06 Routine Visit Bryson Jc [facility] NETWORK [facility]ILD [facility] 1.2.840.114 350.1.13.10 4.2.7.2.686 [id number] [facility] 2020-03-11 10:30:00 2020-03-11 10:30:00 Outpatient BRYSON COUGHLIN [facility] [id number] [facility] 2020-03-11 00:00:00 2020-03-11 00:00:00 Orders Only Doctor Unassigned, [place] [facility] 1.2.840.114 350.1.13.10 4.2.7.2.686 [id number] [facility] 2020-02-29 14:45:00 2020-02-29 14:45:00 Outpatient R BRYSON JC [facility] [id number] [facility] 2020-02-29 12:33:40 2020-02-29 14:10:40 Telemedici ne Visit Bryson Jc [facility] NETWORK [facility] CHILD [facility] 1..840.114 350.1.13.10 4.2.7.2.686 [id number] [facility] 2020-02-15 14:30:00 2020-02-15 14:30:00 Outpatient R BRYSON JC [facility] [id number] [facility] 2020-02-15 13:15:00 2020-02-15 13:15:00 Outpatient R BRYSON JC [facility] [id number] [facility] 2020-02-15 08:55:41 2020-02-15 09:10:41 Telemedici ne Visit Bryson Jc [facility] NETWORK [facility] CHILD [facility] 1.840.114 350.1.13.10 4.2.7.2.686 [id number] [facility] 2020-02-01 15:15:00 2020-02-01 15:15:00 Outpatient R BRYSON JC [facility] [id number] [facility] 2020-02-01 12:37:41 2020-02-01 14:56:36 Telemedici ne Visit Bryson Jc [facility] NETWORK [facility] CHILD [facility] 1..840.114 350.1.13.10 4.2.7.2.686 [id number] [facility] 2020-01-29 10:45:00 2020-01-29 10:45:00 Outpatient R BRYSON JC [facility] [id number] [facility] 2020-01-15 12:49:02 2020-01-15 13:43:18 Routine Visit Bryson Jc [facility] NETWORK [facility] CHILD [facility] 1..840.114 350.1.13.10 4.2.7.2.686 [id number] [facility] 2020-01-15 12:45:00 2020-01-15 12:45:00 Outpatient R BRYSON JC [facility] [id number] [facility] 2020-01-15 00:00:00 2020-01-15 00:00:00 Orders Only Doctor Unassigned, [place] [facility] 1.2.840.114 350.1.13.10 4.2.7.2.686 [id number] [facility] 2019-12-25 12:46:31 2019-12-25 14:12:43 Routine Visit Chandana Jcstuart Wesley [facility] NETWORK [facility] CHILD [facility] 1.2.840.114 350.1.13.10 4.2.7.2.686 [id number] [facility] 2019-12-25 12:45:00 2019-12-25 12:45:00 Outpatient GRADY COUGHLINLEONORA [facility] [id number] [facility] 2019-11-27 13:08:30 2019-11-27 13:49:02 Routine Visit Chandana Jcstuart [facility] NETWORK [facility] CHILD [facility] 1.2.840.114 350.1.13.10 4.2.7.2.686 [id number] [facility] 2019-11-10 00:00:00 2019-11-10 00:00:00 Abstract Jennifer Jcmary [facility] NETWORK [facility] & CHILD [facility] 1.2.840.114 350.1.13.10 4.2.7.2.686 [id number] 107 [id number] [facility] 2019-09-05 19:34:42 2019-09-05 22:10:00 Emergency X RUEDA ESTHER [facility] ERT [id number] [facility] Results Test Description Test Time Test Comments Results Result Co mments [facility] [id number] 09:00:49* Test Item Value Reference Range Interpretation Comme nts HIV Semi-quantitative (test code = 27678-1) 0.08 Negative CHALO (test code = CHALO) Non-reactive for HIV-1 antigen and HIV-1/HIV-2 antibodies. ?No laboratory evidence of HIV infection. ?Repeat in 2-4 weeks if acute HIV infection is suspected. [facility] C [id number] 07:02:39* Test Item Value Reference Range Interpretation Comme nts HCV Ab (test code = 07479-7) Negative HCV Semi-Quantitative (test code = 64631-8) 0.01 [facility] C [id number] 07:02:39* Test Item Value Reference Range Interpretation Comme nts HCV Ab (test code = 81488-8) Negative HCV Semi-Quantitative (test code = 18563-6) 0.01 [facility] [id number] 06:44:58 * Test Item Value Reference Range Interpretation Comme nts TSH (test code = 9080169023) 1.68 See_Comment [Automated [employer]] The system which generated this result transmitted reference range: 0.45 - 4.70 mIU/L. The reference range was not used to interpret this result as normal/abnormal. Lab Interpretation (test code = 99230-3) Normal [facility] B SURFACE [id number] 06:44:58 * Test Item Value Reference Range Interpretation Comme nts HBsAg Semi-Quantitative (clair t code = 5195-3) 0.08 Negative [facility] [id number] 06:44:58 * Test Item Value Reference Range Interpretation Comme nts TSH (test code = 8034514822) 1.68 See_Comment [Automated [employer]] The system which generated this result transmitted reference range: 0.45 - 4.70 mIU/L. The reference range was not used to interpret this result as normal/abnormal. Lab Interpretation (test code = 94543-9) Normal [facility] B SURFACE [id number] 06:44:58 * Test Item Value Reference Range Interpretation Comme nts HBsAg Semi-Quantitative (clair t code = 5195-3) 0.08 Negative [facility]. METABOLIC PANEL (59239)2023-07-06 05:53:09* Test Item Value Reference Range Interpretation Comme nts NA (test code = 5361338044) 139 mmol/L 135-145 K (test code = 8392067405) 4.3 mmol/L 3.5-5.0 CL (test code = 5155398983) 107 mmol/L 98-108 CO2 TOTAL (test code = 0750960357) 21 mmol/L 23-31 L AGAP (test code = 3360605980) 11 2-16 BUN (test code = 1310848829) 7 mg/dL 7-23 GLUCOSE (test code = 3324058254) 90 mg/dL 70-110 CREATININE (test code = 6869690496) 0.50 mg/dL 0.50-1.04 TOTAL BILI (test code = 2789284061) 0.4 mg/dL 0.1-1.1 CALCIUM (test code = 3779918019) 8.7 mg/dL 8.6-10.6 T PROTEIN (test code = 9038705962) 7.1 g/dL 6.3-8.2 ALBUMIN (test code = 0289115192) 4.3 g/dL 3.5-5.0 ALK PHOS (test code = 8487121043) 72 U/L 34-122 ALTv (test code = 1742-6) 16 U/L 5-35 AST(SGOT) (test code = 8194537020) 20 U/L 13-40 eGFR (test code = 9930485104) 148.0 mL/min/1.73m2 CHALO (test code = CHALO) Association of Glomerular Filtration Rate (GFR) and Staging of Kidney Disease* + --+ --+ ------+| GFR (mL/min/1.73 m2) ?| With Kidney Damage ?| ?Without Kidney Damage+ --------+ --------+ +| ?>90 ?| ?Stage one ?| ? Normal ?+ ---+ ---+ -------+| ?60-89 ?| ?Stage two ?| ? Decreased GFR ? + --+ --+ ------+| ?30-59 ?| ?Stage three ?| ? Stage three ? + --+ --+ ------+| ?15-29 ?| ?Stage four ? | ? Stage four ?+ ---+ ---+ -------+| ?<15 (or dialysis) ? ?| ?Stage five ? | ? Stage five ?+ ---+ ---+ -------+ *Each stage assumes the associated GFR level has been in effect for at least three months. ?Stages 1 to 5, with or without kidney disease, indicate chronic kidney disease. Notes: Determination of stages one and two (with eGFR >59mL/min/1.73 m2) requires estimation of kidney damage for at least three months as defined by structural or functional abnormalities of the kidney, manifested by either:Pathological abnormalities or Markers of kidney damage (including abnormalities in the composition of the blood or urine or abnormalities in imaging tests). Lab Interpretation (test code = 64471-4) Abnormal [facility]. METABOLIC PANEL (70508)2023-07-06 05:53:09* Test Item Value Reference Range Interpretation Comme nts NA (test code = 3475025516) 139 mmol/L 135-145 K (test code = 1827470143) 4.3 mmol/L 3.5-5.0 CL (test code = 3718860737) 107 mmol/L 98-108 CO2 TOTAL (test code = 9150133993) 21 mmol/L 23-31 L AGAP (test code = 4546353763) 11 2-16 BUN (test code = 6515407154) 7 mg/dL 7-23 GLUCOSE (test code = 0647281795) 90 mg/dL 70-110 CREATININE (test code = 1572794178) 0.50 mg/dL 0.50-1.04 TOTAL BILI (test code = 5941173432) 0.4 mg/dL 0.1-1.1 CALCIUM (test code = 9318852457) 8.7 mg/dL 8.6-10.6 T PROTEIN (test code = 5679275940) 7.1 g/dL 6.3-8.2 ALBUMIN (test code = 8715150332) 4.3 g/dL 3.5-5.0 ALK PHOS (test code = 9449507909) 72 U/L 34-122 ALTv (test code = 1742-6) 16 U/L 5-35 AST(SGOT) (test code = 4900969091) 20 U/L 13-40 eGFR (test code = 6632030111) 148.0 mL/min/1.73m2 CHALO (test code = CHALO) Association of Glomerular Filtration Rate (GFR) and Staging of Kidney Disease* + --+ --+ ------+| GFR (mL/min/1.73 m2) ?| With Kidney Damage ?| ?Without Kidney Damage+ --------+ --------+ +| ?>90 ?| ?Stage one ?| ? Normal ?+ ---+ ---+ -------+| ?60-89 ?| ?Stage two ?| ? Decreased GFR ? + --+ --+ ------+| ?30-59 ?| ?Stage three ?| ? Stage three ? + --+ --+ ------+| ?15-29 ?| ?Stage four ? | ? Stage four ?+ ---+ ---+ -------+| ?<15 (or dialysis) ? ?| ?Stage five ? | ? Stage five ?+ ---+ ---+ -------+ *Each stage assumes the associated GFR level has been in effect for at least three months. ?Stages 1 to 5, with or without kidney disease, indicate chronic kidney disease. Notes: Determination of stages one and two (with eGFR >59mL/min/1.73 m2) requires estimation of kidney damage for at least three months as defined by structural or functional abnormalities of the kidney, manifested by either:Pathological abnormalities or Markers of kidney damage (including abnormalities in the composition of the blood or urine or abnormalities in imaging tests). Lab Interpretation (test code = 59048-3) Abnormal [facility] WITH [id number] 05:37:24* Test Item Value Reference Range Interpretation Comme nts WBC (test code = 6690-2) 6.95 See_Comment [Automated [employer]] The system which generated this result transmitted reference range: 4.30 - 11.10 10*3/?L. The reference range was not used to interpret this result as normal/abnormal. RBC (test code = 789-8) 4.50 See_Comment [Automated [employer]] The system which generated this result transmitted reference range: 3.93 - 5.25 10*6/?L. The reference range was not used to interpret this result as normal/abnormal. HGB (test code = 718-7) 12.1 g/dL 11.6-15.0 HCT (test code = 4544-3) 38.4 % 35.7-45.2 MCV (test code = 787-2) 85.3 fL 80.6-95.5 MCH (test code = 785-6) 26.9 pg 25.9-32.8 MCHC (test code = 786-4) 31.5 g/dL 31.6-35.1 L RDW-SD (test code = 93649-7) 40.6 fL 39.0-49.9 RDW-CV (test code = 788-0) 13.1 % 12.0-15.5 PLT (test code = 777-3) 325 See_Comment [Automated messa ge] The system which generated this result transmitted reference range: 166 - 358 10*3/?L. The reference range was not used to interpret this result as normal/abnormal. MPV (test code = 95152-2) 11.2 fL 9.5-12.9 NRBC/100 WBC (test code = 4282041216) 0.0 See_Comment [Automated [employer] ssage] The system which generated this result transmitted reference range: 0.0 - 10.0 /100 WBCs. The reference range was not used to interpret this result as normal/abnormal. NRBC x10^3 (test code = 0020168616) See_Comment [Automated [employer]] The system which generated this result transmitted reference range: 10*3/?L. The reference range was not used to interpret this result as normal/abnormal. GRAN MAT (NEUT) % (test code = 770-8) 67.5 % IMM GRAN % (test code = 2576755084) 0.10 % LYMPH % (test code = 736-9) 22.2 % MONO % (test code = 5905-5) 6.0 % EOS % (test code = 713-8) 3.5 % BASO % (test code = 706-2) 0.7 % GRAN MAT x10^3(ANC) (test code = 2995750064) 4.69 10*3/uL 1.88-7.09 IMM GRAN x10^3 (test code = 2933589433) 0.00-0.06 LYMPH x10^3 (test code = 731-0) 1.54 10*3/uL 1.32-3.29 MONO x10^3 (test code = 742-7) 0.42 10*3/uL 0.33-0.92 EOS x10^3 (test code = 711-2) 0.24 10*3/uL 0.03-0.39 BASO x10^3 (test code = 704-7) 0.05 10*3/uL 0.01-0.07 Lab Interpretation (test code = 09724-4) Abnormal [facility] WITH ASSC6573-75-42 05:37:24* Test Item Value Reference Range Interpretation Comme nts WBC (test code = 6690-2) 6.95 See_Comment [Automated [employer]] The system which generated this result transmitted reference range: 4.30 - 11.10 10*3/?L. The reference range was not used to interpret this result as normal/abnormal. RBC (test code = 789-8) 4.50 See_Comment [Automated messa ge] The system which generated this result transmitted reference range: 3.93 - 5.25 10*6/?L. The reference range was not used to interpret this result as normal/abnormal. HGB (test code = 718-7) 12.1 g/dL 11.6-15.0 HCT (test code = 4544-3) 38.4 % 35.7-45.2 MCV (test code = 787-2) 85.3 fL 80.6-95.5 MCH (test code = 785-6) 26.9 pg 25.9-32.8 MCHC (test code = 786-4) 31.5 g/dL 31.6-35.1 L RDW-SD (test code = 19660-5) 40.6 fL 39.0-49.9 RDW-CV (test code = 788-0) 13.1 % 12.0-15.5 PLT (test code = 777-3) 325 See_Comment [Automated [employer]] The system which generated this result transmitted reference range: 166 - 358 10*3/?L. The reference range was not used to interpret this result as normal/abnormal. MPV (test code = 32011-1) 11.2 fL 9.5-12.9 NRBC/100 WBC (test code = 0986164737) 0.0 See_Comment [Automated me ssage] The system which generated this result transmitted reference range: 0.0 - 10.0 /100 WBCs. The reference range was not used to interpret this result as normal/abnormal. NRBC x10^3 (test code = 4377529519) See_Comment [Automated messa ge] The system which generated this result transmitted reference range: 10*3/?L. The reference range was not used to interpret this result as normal/abnormal. GRAN MAT (NEUT) % (test code = 770-8) 67.5 % IMM GRAN % (test code = 1005584359) 0.10 % LYMPH % (test code = 736-9) 22.2 % MONO % (test code = 5905-5) 6.0 % EOS % (test code = 713-8) 3.5 % BASO % (test code = 706-2) 0.7 % GRAN MAT x10^3(ANC) (test code = 0072082455) 4.69 10*3/uL 1.88-7.09 IMM GRAN x10^3 (test code = 8758396722) 0.00-0.06 LYMPH x10^3 (test code = 731-0) 1.54 10*3/uL 1.32-3.29 MONO x10^3 (test code = 742-7) 0.42 10*3/uL 0.33-0.92 EOS x10^3 (test code = 711-2) 0.24 10*3/uL 0.03-0.39 BASO x10^3 (test code = 704-7) 0.05 10*3/uL 0.01-0.07 Lab Interpretation (test code = 13358-9) Abnormal [facility] GACG6286-23-14 16:10:00* Test Item Value Reference Range Interpretation Comme nts POCT PREG (test code = 1605) Negative On board controls acceptable with C Line (test code = 3574) Yes POCT PREG LOT # (test code = 3575) POCT PREG TEST DATE ( test code = 3576) [facility] OUEL0432-43-49 16:10:00* Test Item Value Reference Range Interpretation Comme nts POCT PREG (test code = 1605) Negative On board controls acceptable with C Line (test code = 3574) Yes POCT PREG LOT # (test code = 3575) POCT PREG TEST DATE ( test code = 3576) [facility] URINALYSIS W/O SPECIFIC FXZMCTR7154-78-43 14:04:00* Test Item Value Reference Range Interpretation Comme nts POCT PH U (test code = 3254) 6 mg/dl 5-8 POCT U LEUK EST (test code = 3263) 2+ Negative - Negative POCT U NIT (test code = 3262) Pos Negative - Negati ve POCT U PROT (test code = 3259) TRace Negative - Negat ashkan POCT U GLU (test code = 3256) Neg Negative - Negati ve POCT U KETONE (test code = 3258) None Negative - Neg ative POCT U BLD (test code = 3257) Trace Negative - Negati ve [facility] URINALYSIS W/O SPECIFIC PLZEVKO7401-92-38 14:04:00* Test Item Value Reference Range Interpretation Comme nts POCT PH U (test code = 3254) 6 mg/dl 5-8 POCT U LEUK EST (test code = 3263) 2+ Negative - Negative POCT U NIT (test code = 3262) Pos Negative - Negati ve POCT U PROT (test code = 3259) TRace Negative - Negat ashkan POCT U GLU (test code = 3256) Neg Negative - Negati ve POCT U KETONE (test code = 3258) None Negative - Neg ative POCT U BLD (test code = 3257) Trace Negative - Negati ve [facility] WZRMKFZ8244-38-73 18:10:00* Test Item Value Reference Range Interpretation Comme nts POCT PH U (test code = 3254) 6 mg/dl 5-8 POCT U LEUK EST (test code = 3263) Neg Negative - Negative POCT U NIT (test code = 3262) Neg Negative - Negati ve POCT U PROT (test code = 3259) Trace Negative - Negat ashkan POCT U GLU (test code = 3256) Neg Negative - Negati ve POCT U KETONE (test code = 3258) None Negative - Neg ative POCT U BLD (test code = 3257) Trace Negative - Negati ve [facility] Notes Date/Time Note Provider Source 2023-12-20 09:45:22 im/yNOmkoYbMEbNuV7P99wBufgpc7Fz4brP NdcSzlMGj8kGcC0wIShBJvPthju3u1994-7 09:45:22 Patient informed of results for UTI and new orders, verbalized understanding.Notified the patient of her positive STI results trichomonas.Notified the patient her medication has been sent to her pharmacy on file.Educated patient she should complete the entire course, advised patient to practice safe sex practices and to remain abstinent for at least 1-2 weeks post treatment.Patient desires to have partner treated, call placed to [facility] in [place], order given for Flagyl 500 mg 4 tabs PO x 1 dose forName of partner:Nilton Tsang:10/12/1992NKDAPhone number:[phone] std pamphlet for partner education. Patient declinedstd pamphlet to be mailed to partner.Advised patient on HIV testing if she has not recently been tested.Advised RATNA appointment in 3 months. Pt verbalized understanding. 67058-9Sxjzdaoxm encounter MirdSW6324-33-54C77:49:57Telephone encounter NoteTXT1.2.840.910567.1.13.104.2.7. 2.225965|[id number] for patient kvbt80096-1KpwjSQLPIDXOGHSCdbkazsfl C-CDA narrative textUTMBE[facility] - [address] Zi[id number] 8AZRAEBYZDBNOFYEAQIZIWR3890-92-47B7 9:49:571.2.840.254978.1.72.3.15|1.2 .840.787898.1.13.104.2.7.2.727879_2 [id number] [facility] 2023-12-20 09:29:55 A+bzqdLsQ0r+k+D+0uOXClWzPreyCXce9fk 2kYeS916npNtdHm4SehVMlBJQCmoK0998-2 09:29:55 Please call patient and let her know she has UTI and I erx keflex to pharmacy.She also has trich and I erx flagyl 2000 mg PO once to pharmacy. Her partner also needs to be treated with same dose. 01229-4Oybwkxnnh encounter VymlUI8141-89-73A39:35:27Telephone encounter NoteTXT1.2.840.564072.1.13.104.2.7. 2.175435|[id number] for patient dfkg80424-9AjlyBBCETTYVXULOukbdmyuk C-CDA narrative text[address] EbqoP[id number] 2NEVIBLWYVEZXQVPEZDUVMH8386-52-70R0 9:35:271.2.840.878233.1.72.3.15|1.2 .840.039414.1.13.104.2.7.2.727879_2 [id number] [facility] 2023-07-13 17:12:56 bDnFmZBDMdJo0YzMnPiruaejgteFsIk3DWF OyXGCQEuVTyNb8ektFVbAR7GPPXyY0029-7 07-13T17:12:56 UTI noted on urine cultureAntibiotics sent by Kristin on 07/08Recommend to avoid fragrant products in vaginal area, douching, spray or powders. Encouraged to avoid tight fitted clothing and to keep area clean and dry.Educate on the importance of wiping and cleaning in the correct direction/orderCaution contamination during intercourseRecommend repeat urine culture after treatment completion 76626-8Bkliskkmv encounter RiskLE4297-03-49M00:15:54Telephone encounter NoteTXT1.2.840.815407.1.13.104.2.7. 2.640280|[id number] for patient phat28177-1LqbvMUBSIKRDSQ[id number] 5GMMUUWXZKXCWHEDLVSEEDS9620-75-66N7 7:15:541.2.840.939947.1.72.3.15|1.2 .840.647422.1.13.104.2.7.2.727879_1 [id number] [facility] 2023-07-12 16:48:12 x8FRNmPs8a2KZ6X+8QcaJvvE0EEvzyFcRsF D4tXoIgGSexG1fwz0sZ3XKcKfuAxW6317-1 07-12T16:48:12 Orders faxed to [phone] Karimi RN 07/12/23 4:48 PM 01056-5Zyzwwutpt encounter LsirJH6703-02-24G05:48:41Telephone encounter NoteTXT1.2.840.601392.1.13.104.2.7. 2.843206|3371716848KZCbkhcbubi for patient sufn12536-5IyeqUC227163317Wwsppkhl Hernandez [id number] 6PANTNIZMJFKOHFXUBNFQJH8819-16-20U4 6:48:411.2.840.122808.1.72.3.15|1.2 .840.236740.1.13.104.2.7.2.727879_1 [id number] Etelvina Karimi RN [facility] 2023-07-12 16:31:03 04FK3OpZjZwPL/MR6dV74ZE6KNRyk3wvxKA tnE0GHrrDPdepSuxpoEfa3CGdPhx98436-2 07-12T16:31:03 OrderedThanks for yall help 49642-8Vvxsuytik encounter PuguRC2779-87-94B60:31:14Telephone encounter NoteTXT1.2.840.895843.1.13.104.2.7. 2.891381|8102556914FSNcdhsrigf for patient tqad30485-1MmmqSKWHZCKDIX[id number] 0MUXNSDLSHBAAGMJFGRLOZT1617-03-12A7 6:31:141.2.840.260776.1.72.3.15|1.2 .840.110989.1.13.104.2.7.2.727879_1 [id number] [facility] 2023-07-08 13:59:55 e57MIUFam3t9ey+SFnPE+aSf5v6HMlsxUk1 PG+O1csx71zBpYBWP2cahpMKsvf8X9459-4 07-08T13:59:55 Called pt, nurse visit schedule. Pt verbalized understanding.Etelvina Karimi RN 07/08/23 2:00 PM 17363-9Hlcliqpkd encounter FijoKW3593-32-49I42:01:07Telephone encounter NoteTXT1.2.840.993156.1.13.104.2.7. 2.712124|3048081166EWByejknpdj for patient oqjj27097-3CoxqTB876558156Iqcbwzrx Hernandez RN[id number] 0KGBMAOFQXFXNSXYJPQNPHA5241-92-98F5 4:01:071.2.840.939853.1.72.3.15|1.2 .840.232535.1.13.104.2.7.2.727879_1 [id number] Etelvina Karimi RN [facility] 2023-07-08 13:51:50 VjKiF7oLIXns8mm+XxLqmAQixuFCKtgVKBv ffFd58Gw3N+RmUK6TbhbeA5qlxMzh5957-6 07-08T13:51:50 Since she is FP pratima, she can come to clinic for the medication.I did rx for both flagyl and macrobid. 42067-2Hzqiiogbn encounter WvzaSU0738-30-98Q18:52:48Telephone encounter NoteTXT1.2.840.618773.1.13.104.2.7. 2.162626|6488063388QFUzbxghcnv for patient vuus63184-5MeinNYYSYYJHYG[id number] 3RZHVYBVNYSQLIKZSHYYERE4021-72-99B3 3:52:481.2.840.392055.1.72.3.15|1.2 .840.894159.1.13.104.2.7.2.727879_1 [id number] [facility] 2023-07-08 13:15:08 Ctz1fwCVbbicp9rDIqnQbLZKem+qNwbrEor m+xOwD9MOtCdA31JT0tDGUp8uNw+U1373-1 07-08T13:15:08 Patient informed of results for uti and BV. Informed will route to provider for orders. Patient stating she is wanting to be seen in ER for lower back and lower abdominal pain. Informed patient if pain is severe can be seen in ER but will route for orders. Patient stated she will wait for abt to be sent. 77785-9Qdusrjioj encounter LnryXI1165-29-41J15:17:53Telephone encounter NoteTXT1.2.840.354538.1.13.104.2.7. 2.318813|6063549261UXUzeewrhdx for patient duru25020-6VrlfYTSXUPWAWX[address] EpfwDoqkepfakErwqmfymlCWNU388253170 3CCQFAJZWVREEIMOFFBVQVI5075-87-67C0 3:17:531.2.840.691388.1.72.3.15|1.2 .840.778732.1.13.104.2.7.2.727879_1 [id number] [facility] 2023-07-08 13:05:11 kJYV95GNgALl8ZyzhHZOY3AxbHvPyiPy/Qi ig3hpES33dkck0hraa/TSLnsQditr5470-4 07-08T13:05:11 Clarice Hannah is a 28 year old femalePt asking if she will be getting a prescription or does she have to go to ER?Please call [phone] (home) 47651-8Cijsaounj encounter TxndIG1396-46-39X26:06:39Telephone encounter NoteTXT1.2.840.509216.1.13.104.2.7. 2.638836|3771414311XBDwssxrfph for patient wojq98157-1ZwelNE500450090Hnld Bazan [id number] 1MOXCPJEXQZVFSZKKNXZQXG7867-68-26O2 3:06:391.2.840.221904.1.72.3.15|1.2 .840.291696.1.13.104.2.7.2.727879_1 [id number] Darcie Ovalle [facility] 2023-07-08 10:36:10 S09iprPlEzbjO+TNTEUG5D1us/ZC06uYUAs QdDaGSD9f2FMj/q0wYJZnmC4Pqxu75353-9 07-08T10:36:10 Pt requesting call back for lab result clarification. Also states she received her results on [facility] and is asking for plan of care or if RX will be sent in. Please call back [phone] signed by Joy Ahumada at 07/08/2023 10:40 AM HTH78646-6Ujulbfgvx encounter FqieHA7475-66-10L77:40:02Telephone encounter NoteTXT1.2.840.273820.1.13.104.2.7. 2.063064|0301247691OSNqsovflqx for patient zazw95353-7DgvnSH2544136Vewjz L [id number] 4CEETAKNGIGRCJNOPTFUJSF8336-37-59T9 0:40:021.2.840.278164.1.72.3.15|1.2 .840.282400.1.13.104.2.7.2.727879_1 [id number] Joy Ahumada [facility] 2023-07-07 14:01:56 otKKyf8OJonWbOBdb1Ag9A0cRlSCRTuZq3S t5b78XW5jEz/x3xUffgclpSRw76EF7852-2 07-07T14:01:56 Clarice Hannah is a 28 year old female calling back to get new order for US to be sent to [facility] please send by 07/08. Please contact patient at [phone] to confirm 35637-1Rwgvmncss encounter LntdVH5608-98-65A22:06:58Telephone encounter NoteTXT1.2.840.343262.1.13.104.2.7. 2.278230|6478591403UFIxwdyosmd for patient fkxc99251-5QempVJ074712172Woprh D Lars[address] BhhdTltfishfbAmvascuetDJIR950809834 3YOENAZASTAXGAQETYZZIKN5006-05-16I6 4:06:581.2.840.453236.1.72.3.15|1.2 .840.887977.1.13.104.2.7.2.727879_1 [id number] Nahomi Romero [facility] 2023-07-07 09:12:47 4AycoGTn7GVEsCLRMYKoZ982liD6BrSrCKr Zt/s1UzGoty2rRXEhzdeE6QKIgHWc5318-3 07-07T09:12:47 Called pt, notified of providers recommendations. Offered external usg order, pt decllined. Offered data analytics architect clinic referral, but advised no imaging covered under [employer]. Pt desires referral. Routed to provider for referral.Etelvina Karimi RN 07/07/23 9:13 AM 92023-7Thpiibnhf encounter PuayWO5826-41-86A81:13:53Telephone encounter NoteTXT1.2.840.676671.1.13.104.2.7. 2.633422|2320361250XVSpltouxrx for patient yzgn71199-9HqcoURCPFPCYKE[id number] 7WTWIFKHSEEBMAINIUKAGQY7120-57-73H0 9:13:531.2.840.361150.1.72.3.15|1.2 .840.953786.1.13.104.2.7.2.727879_1 [id number] [facility] 2023-07-06 18:29:22 +LqPXH21Ur/h3Ho7BXrX2P0iLKP7YOJcpxo RWV4RF1SRXcF9HnPVJVDG/OT1pmom4450-8 8:29:22 Unfamiliar with [facility] and what the patient can and cannot do. Please review chart and order and assist 01805-2Atjuuwxzl encounter TuqxJY7841-13-55U65:30:29Telephone encounter NoteTXT1.2.840.756895.1.13.104.2.7. 2.776016|3968548779YDJbmzghigy for patient niru73767-7FegfPKNCGWBKBH[id number] 5TVGBYOVIFABBIITIJTCHOG6904-80-41E7 8:30:291.2.840.853583.1.72.3.15|1.2 .840.230256.1.13.104.2.7.2.727879_1 [id number] [facility] 2023-07-06 11:44:03 hfVfApPxivEi2nE7J9CgSRvYmghgItQb0W/ u3ieGOBiOHCfhiooPga2/9HmKXqng1970-6 1:44:03 Pt called USG department to schedule pelvic USG and was informed orders are incorrect and she cannot be scheduled. Pt is on family planning pratima and has no other financial source. Will route to provider for new orders. 49605-1Qblweihdf encounter GjepYZ0623-95-62X27:46:41Telephone encounter NoteTXT1.2.840.157735.1.13.104.2.7. 2.331214|5076467829LISmbmrevbq for patient xgud19179-8GnbeNXUSGMGPAC[address] [place], [place] [address] 3LOGROHEUDHGNXHURGTMAVH4805-43-17Y8 1:46:411.2.840.362081.1.72.3.15|1.2 .840.318693.1.13.104.2.7.2.727879_1 [id number] [facility] 2023-07-06 11:41:22 JHrSvFy4IEKL9sO2/rmyVVRmovBRagnifLj Pn/43Cod8oQQM0UkXJVq0qIVwJiXi0864-7 1:41:22 Pt requesting medication for UTI. Pt was treated with Cipro and complaining of ongoing symptoms. Notified patient that provider is waiting for urine culture results to determine POC and appropriate treatment. Pt verbalized understanding. VANCE STALEY RN 07/06/2023 11:42 AM 52279-0Eybujsgqx encounter KtuxKW3146-40-19Z44:43:46Telephone encounter NoteTXT1.2.840.313583.1.13.104.2.7. 2.059437|9945199793ILVpjtqybpu for patient uyze98662-2ZaymVGOZQNXTIW[id number] 8WLRTDRDSABAKAHDEDCJKPV2692-09-18Z6 1:43:461.2.840.586735.1.72.3.15|1.2 .840.749400.1.13.104.2.7.2.727879_1 [id number] [facility] 2023-07-06 10:28:55 63DESQ2rCfAJ7x/Z2R3uf2QS6doHk4QoGsT SsBEV9FklzCU68UtsuiN7UjD+UymF6725-8 07-06T10:28:55 Clarice Hannah is a 28 year old female Patient called with US order issue. Patient was initially sent to [facility] line to schedule US but was told she needed to speak to radiology for US. But radiology informed patient they do not have an US order in. Please contact pt at [phone] (home) 41812-8Voikayhcm encounter UocgBB6007-42-85A18:30:29Telephone encounter NoteTXT1.2.840.841351.1.13.104.2.7. 2.296404|9503796414TOWrgewmnjz for patient tznp19648-7XazwNG693846232Akhveblof L [address] TkacGetzqltfsJoholjpfgHODX896843069 2MOSQQRNZMOJVJWLHPHBYQQ5885-99-17G1 0:30:291.2.840.812539.1.72.3.15|1.2 .840.589548.1.13.104.2.7.2.727879_1 [id number] Manasa Castillo [facility] 2023-07-06 10:03:30 H5C6UAkUJ/KLzgKcvhap+O5RkDr/R3bzCrt Gv5/bRN6QXbL9cKpcoXmX0cCp+E687961-8 07-06T10:03:30 Clarice Hannah is a 28 year old femalePt requesting call back, saw mychart results stating she had a UTI and would like medication for that. Would also like to speak to nurse regarding all the lab results from 07/05. Pt was given cypro 500 mg was not strong enough so if they can prescribe something else. Please call [phone] (home) 41363-0Fmkamhwyq encounter VqcvBT5412-32-10U56:07:21Telephone encounter NoteTXT1.2.840.635531.1.13.104.2.7. 2.066177|6432911019QAFfnhnyjov for patient lhnb16407-3SdwpEK96696209Pihqu Sal[address] AfnxBtyllslooOpfvbjacgBYSD204667449 9IUQNZVEVAIXYSEDGETSBFC8441-14-91D9 0:07:211.2.840.577371.1.72.3.15|1.2 .840.740807.1.13.104.2.7.2.727879_1 [id number] Ronit Lomeli [facility]"
[2024-02-01] MEDS ORDERED: ONDANSETRON 4 MG/2 ML VIAL ONE (09:10)
[2024-02-01] MEDS ORDERED: NA CHLORIDE 0.9% 1,000 ML ONE (09:10)
[2024-02-01] MEDS ORDERED: KETOROLAC 30 MG/ML INJ ONE (09:10)
[2024-02-01 09:51] LABS: Specific Gravity 1.009 (1.005-1.030)
[2024-02-01 09:52] LABS: Absolute Basophils 0.1 K/uL (0-0.5); Absolute Eosinophils 0.1 K/uL (0-0.5); Absolute Lymphocytes (CBC) 1.2 K/uL (0.7-4.9); Absolute Monocytes 0.4 K/uL (0.1-1.3); Basophils % 0.9 % (0-1.3); Eosinophils % 1.3 % (0-4.4); Hematocrit 35.3 % (36.0-45.0); Hemoglobin 11.9 g/dL (12.0-15.0); Lymphocytes % 15.6 % (15.3-44.8); MCH 28.1 pg (27.0-35.0); MCHC 33.7 g/dL (32.0-36.0); MCV 83.4 fL (80-100); MPV 8.2 fL (7.6-11.3); Monocytes % 4.9 % (3.3-12.3); Neutrophils % 77.3 % (41.7-73.7); Platelets 398 thou/uL (152-406); RBC Red Blood Cell Count 4.24 M/uL (3.86-4.86); Red Cell Distribution Width 13.3 % (12.1-15.2)
[2024-02-01 10:07] LABS: Albumin 3.5 g/dL (3.4-5.0); Albumin/Globulin Ratio 0.9 (1.1-1.8); Anion Gap 11.6 mEq/L (5.0-15.0); Bilirubin Total 0.4 mg/dL (0.2-1.0); Protein, Total 7.5 g/dL (6.4-8.2)
[2024-02-01 10:08] LABS: Specific Gravity 1.009 (1.005-1.030); Urine Bilirubin NEGATIVE (Negative); Urine Blood 1+ (Negative); Urine Clarity Extremely Turbid (Clear); Urine Color Light-Yellow (Yellow); Urine Glucose NEGATIVE (Negative); Urine Ketones 3+ (Negative); Urine Nitrite NEGATIVE (Negative); Urine Protein TRACE (Negative); Urine Urobilinogen Normal (Normal)
[2024-02-01 10:09] LABS: Sqamous Epithelial <5 /HPF (None Seen); Urine Bacteria >50 /HPF (<20); Urine Culture Reflex Order REFLEXED; Urine Microscopic Reflex YN ORDER UMIC; Urine Mucus Slight /HPF (None Seen); Urine WBC 20-50 /HPF (<5)
[2024-02-01 10:16] LABS: Potassium 3.6 mEq/L (3.5-5.1)
--- NOTE | 2024-02-01 11:06 | RAD REPORT ---
EXAM DESCRIPTION: CT - Abdomen Pelvis W Contrast - 02/01/2024 10:29 am CLINICAL HISTORY: Abdominal pain COMPARISON: none. TECHNIQUE: Computed axial tomography of the abdomen pelvis was obtained. 100 cc Isovue-300 was admin istered intravenously. Oral contrast was not requested which limits evaluation of bowel and appendix All CT scans are performed using dose optimization technique as appropriate and may include automated exposure control or mA/KV adjustment according to patient size. FINDINGS: Postsurgical changes of an abdominoplasty. No hematoma/ abscess. Edema within the subcutan eous tissues The liver, spleen, pancreas, adrenal and kidneys appear unremarkable. There is no evidence of diverticulitis. Normal appendix. No adnexal mass. Quezada catheter within the bladder. Mild bladder wall thickening IMPRESSION: Mild bladder wall thickening may indicate inflammation Edema within the anterior subcutaneous tissues may indicate a cellulitis and should be correlated cli nically. No abscess/hematoma
--- NOTE | 2024-02-01 11:13 | ER ---
Nurse's Notes [facility] Name: Clarice Hannah Age: 28 yrs Sex: Female : 1995 Arrival Date: 02/01/2024 Time: 08:17 Bed 20 Private MD: Diagnosis: UTI/ Urinary tract infection, site not specified Presentation: 01/31 08:28 Chief complaint: Patient states: Went to [place] Wednesday, got urinary catheter. Still ll1 not feeling well since. Pain to back and R sided abdominal pain ("my incision sites"). Had abdominoplasty and breast augmentation a few weeks ago. No known fever but has chills. Coronavirus screen: Client denies travel out of the [place] in the last 14 days. chills, fatigue, muscle pain, Client presents with at least one sign or symptom that may indicate coronavirus-19. Standard/surgical mask placed on the client. Ebola Screen: Patient denies travel to an Ebola-affected area in the 21 days before illness onset. Initial Sepsis Screen: Does the patient meet any 2 criteria? No. Patient's initial sepsis screen is negative. Does the patient have a suspected source of infection? No. Patient's initial sepsis screen is negative. Risk Assessment: Do you want to hurt yourself or someone else? Patient reports no desire to harm self or others. Onset of symptoms was January 29, 2024. 08:28 Method Of Arrival: Wheelchair ll1 08:28 Acuity: NIKHIL 3 ll1 Triage Assessment: 08:28 General: Appears uncomfortable, ill, Behavior is calm, cooperative, appropriate for ll1 age. General: Reports chills for fatigue for. Pain: Complains of pain in back Quality of pain is described as aching, crampy. Neuro: Reports weakness. Cardiovascular:. : Reports catheter in place since Wednesday. Historical: - Allergies: 08:34 No Known Allergies; ll1 - PMHx: 08:34 Asthma; ll1 - PSHx: 08:34 abdominoplasty; breast augmentation; umbilical hernia repair; ll1 - Immunization history:: Adult Immunizations up to date. - Infectious Disease History:: Denies. - Social history:: Smoking status: Patient denies any tobacco usage or history of. Screenin:[facility] Fall Risk Assessment (Adult) History of falling in the last 3 months, bp including since admission No falls in past 3 months (0 pts). Abuse screen: Denies threats or abuse. Denies injuries from another. Nutritional screening: No deficits noted. Tuberculosis screening: No symptoms or risk factors identified. Assessment: 08:30 General: SEE TRIAGE NOTE. bp 09:40 Reassessment: Patient appears in no apparent distress at this time. Patient is alert, bp oriented x 3, equal unlabored respirations, skin warm/dry/pink. 10:41 Reassessment: Patient appears in no apparent distress at this time. Patient is alert, bp oriented x 3, equal unlabored respirations, skin warm/dry/pink. Vital Signs: 08:28 BP 122 / 82; Pulse 88; Resp 18; Temp 97; Pulse Ox 96% on R/A; Weight 65.77 kg; Height 5 ll1 ft. 1 in. ; Pain 7/10; 09:40 BP 122 / 76; Pulse 88; Resp 16; Pulse Ox 100% ; bp 10:41 BP 122 / 81; Pulse 72; Resp 16; Pulse Ox 96% ; bp 11:40 BP 121 / 79; Pulse 75; Resp 16; Pulse Ox 99% ; bp 08:28 Body Mass Index 27.40 (65.77 kg, 154.94 cm) ll1 08:28 Pain Scale: Adult ll1 ED Course: 08:19 Patient arrived in ED. mg5 08:20 Bennie Ji, ANETTE is Primary Nurse. bp 08:20 Arm band placed on Patient placed in an exam room, on a stretcher. ll1 08:31 Avila Beasley MD is Attending Physician. ec2 08:32 Triage completed. ll1 09:07 CBC with Diff Sent. bp 09:07 CMP Sent. bp 09:07 Lipase Sent. bp 09:07 Test, Urine Sent. bp 09:07 Urinalysis w/ reflexes Sent. bp 09:08 Inserted saline lock: 22 gauge in right forearm, using aseptic technique. Blood bp collected. 09:40 Patient has correct armband on for positive identification. bp 10:31 CT Abd/Pelvis - IV Contrast Only In Process Unspecified. EDMS 10:42 Urine Culture Sent. bp 11:40 Provided Education on: N/A. bp 11:40 No provider procedures requiring assistance completed. IV discontinued, intact, bp bleeding controlled, No redness/swelling at site. Pressure dressing applied. Administered Medications: 09:15 Drug: NS 0.9% IV 1000 ml IV at 1 bolus Per protocol; 1000 mL bolus Route: IV; Rate: 1 bp bolus; Site: right forearm; 11:40 Follow up: IV Status: Completed infusion; IV Intake: 1000ml bp 09:15 Drug: TORadol - Ketorolac IVP 15 mg IVP once Route: IVP; Site: right forearm; bp 11:39 Follow up: Response: No adverse reaction bp 09:15 Drug: Ondansetron IVP 4 mg IVP once; over 2 minutes Route: IVP; Site: right forearm; bp 11:40 Follow up: Response: No adverse reaction bp 11:39 Drug: Cephalexin PO 500 mg PO once Route: PO; bp 11:40 Follow up: Response: No adverse reaction bp 11:39 Drug: Rocephin (cefTRIAXone) IM 250 mg IM once Route: IM; Site: left gluteus; bp 11:40 Follow up: Response: No adverse reaction bp Medication: 11:40 VIS not applicable for this client. bp Intake: 11:40 IV: 1000ml; Total: 1000ml. bp Outcome: 11:13 Discharge ordered by . ec2 11:40 Discharged to home ambulatory, bp 11:40 Condition: stable 11:40 Discharge instructions given to patient, Instructed on discharge instructions, follow up and referral plans. medication usage, Demonstrated understanding of instructions, follow-up care, medications, Prescriptions given X 2, 11:41 Patient left the ED. bp Addendum: 02/03/2024 10:13 Addendum: Culture Results: Positive urine culture. Bacteria is resistant to, has i w intermediate sensitivity, or is not tested against prescribed antibiotics. Report given to NILO for further evaluation and then to fire control officer for follow up with patient. Phone call Attempt #1 notified pt Prescription called-in to pharmacy of choice. Cipro 500 mg PO BID X 7 days, #14, no refills. Signatures: Dispatcher [employer] Joy Beverly RN RN iw Bennie Ji RN RN bp Lewis, Lynsay, RN RN [facility] Amalia Rodriguez 5 Avila Beasley MD MD ec2 Corrections: (The following items were deleted from the chart) 01/31 08:34 08:28 Chief complaint: Patient states: Went to [place] Wednesday, got urinary catheter. ll1 Still not feeling well since. Pain to back and R sided abdominal pain ("my incision sites"). Had abdominoplasty and breast augmentation a few weeks ago. No known fever but has chills. ll1 02/02 19:38 10:13 Addendum: Culture Results: Positive urine culture. iw iw
--- NOTE | 2024-02-01 11:13 | EDPHYS ---
Physician Documentation [facility] Name: Clarice Hannah Age: 28 yrs Sex: Female : 1995 Arrival Date: 02/01/2024 Time: 08:17 Bed 20 Private MD: ED Physician Avila Beasley HPI: 01/31 08:43 This 28 yrs old Female presents to ER via Wheelchair with complaints of ec2 Doesn't Feel Right. 08:43 Patient arrives today for evaluation of abdominal pain and generally not feeling well. ec2 Patient reports she had a recent abdominoplasty, breast augmentation, having some right-sided abdominal pain. Patient reports no fevers or chills. Reports some recent urinary retention, has indwelling [place] catheter. Patient reports no fevers or chills, no cough or cold symptoms.. Historical: - Allergies: 08:34 No Known Allergies; ll1 - PMHx: 08:34 Asthma; ll1 - PSHx: 08:34 abdominoplasty; breast augmentation; umbilical hernia repair; ll1 - Immunization history:: Adult Immunizations up to date. - Infectious Disease History:: Denies. - Social history:: Smoking status: Patient denies any tobacco usage or history of. ROS: 08:43 Constitutional: as per hpi ec2 Exam: 08:43 Constitutional: GEN: NAD Head: atraumatic Eyes: EOMI Ears: External ears are ec2 normal. CV: regular rate LUNGS: no respiratory distress ABD: non-distended, soft, nontender, no guarding, not rigid, abdominal plasty sites appear well-healing, nonerythematous, nonfluctuant. SKIN: no evidence of rashes MSK: no evidence of trauma NEURO: moves all extremities equally Vital Signs: 08:28 BP 122 / 82; Pulse 88; Resp 18; Temp 97; Pulse Ox 96% on R/A; Weight 65.77 kg; Height 5 ll1 ft. 1 in. ; Pain 7/10; 09:40 BP 122 / 76; Pulse 88; Resp 16; Pulse Ox 100% ; bp 10:41 BP 122 / 81; Pulse 72; Resp 16; Pulse Ox 96% ; bp 11:40 BP 121 / 79; Pulse 75; Resp 16; Pulse Ox 99% ; bp 08:28 Body Mass Index 27.40 (65.77 kg, 154.94 cm) ll1 08:28 Pain Scale: Adult ll1 MDM: 08:31 Patient medically screened. ec2 08:43 Data reviewed: vital signs. ED course: Patient arrives today for evaluation of ec2 abdominal pain and generally not feeling well. Examination remarkable for abdominal findings as noted above. Will obtain lab work, urine studies, CT imaging. Evaluating for electrolyte disturbances, UTI, intra-abdominal infection, postoperative complications. Surgery was done in [place].. 10:01 ED course: CBC reassuring, urine testing negative. . ec2 10:41 ED course: CMP is reassuring. Urine is remarkable for leuk esterase. Lipase within ec2 normal ranges. Will treat for UTI given recent catheter instrumentation . 11:07 ED course: CT imaging shows bladder wall thickening, consistent with patient's UTI, ec2 additionally concern for possible cellulitis, clinically I do not see this on my physical examination, regardless we will start on antibiotics for the UTI which also cover possible concurrent cellulitis. Will discharge home and have follow-up primary care doctor. . 04 08:43 Order name: CBC with Diff; Complete Time: 10:01 ec2 01/31 08:43 Order name: CMP; Complete Time: 10:41 ec2 01/31 08:43 Order name: Lipase; Complete Time: 10:41 ec2 01/31 08:43 Order name: Test, Urine; Complete Time: 10:01 ec2 01/31 08:43 Order name: Urinalysis w/ reflexes; Complete Time: 10:41 ec2 01/31 10:16 Order name: Urine Culture EDDE 01/31 08:43 Order name: CT Abd/Pelvis - IV Contrast Only; Complete Time: 11:07 ec2 01/31 08:43 Order name: IV Saline Lock; Complete Time: 09:07 ec2 01/31 08:43 Order name: Labs collected and sent; Complete Time: 09:07 ec2 Administered Medications: 09:15 Drug: NS 0.9% IV 1000 ml IV at 1 bolus Per protocol; 1000 mL bolus Route: IV; Rate: 1 bp bolus; Site: right forearm; 11:40 Follow up: IV Status: Completed infusion; IV Intake: 1000ml bp 09:15 Drug: TORadol - Ketorolac IVP 15 mg IVP once Route: IVP; Site: right forearm; bp 11:39 Follow up: Response: No adverse reaction bp 09:15 Drug: Ondansetron IVP 4 mg IVP once; over 2 minutes Route: IVP; Site: right forearm; bp 11:40 Follow up: Response: No adverse reaction bp 11:39 Drug: Cephalexin PO 500 mg PO once Route: PO; bp 11:40 Follow up: Response: No adverse reaction bp 11:39 Drug: Rocephin (cefTRIAXone) IM 250 mg IM once Route: IM; Site: left gluteus; bp 11:40 Follow up: Response: No adverse reaction bp Disposition Summary: 02/01/24 11:13 Discharge Ordered Notes: Location: Home ec2 Condition: Stable ec2 Diagnosis - UTI/ Urinary tract infection, site not specified ec2 Followup: ec2 - With: Private Physician - When: - Reason: Re-evaluation by your physician Discharge Instructions: - Discharge Summary Sheet ec2 - Urinary Tract Infection, Adult, [id number] ec2 Forms: - Work release form bd - Medication Reconciliation Form ec2 - Thank You Letter ec2 - Antibiotic Education ec2 - Prescription Opioid Use ec2 - Patient Portal Instructions ec2 - Leadership Thank You Letter ec2 Prescriptions: - Cephalexin 500 mg Oral capsule - take 1 capsule ORAL route every 12 hours for 7 days; 14 capsule; Refills: 0, ec2 Product Selection Permitted - Zofran 4 mg Oral Tablet - take 1 tablet ORAL route every 12 hours As needed; 20 tablet; Refills: 0, ec2 Product Selection Permitted Signatures: Dispatcher [employer] Bennie Monroe RN RN bp Lewis, Lynsay, RN RN [facility] Avila Beasley MD MD ec2
[2024-02-01] MEDS ORDERED: CEFTRIAXONE 1000 MG/VIAL ONE (11:25)
[2024-02-01 12:00] VITALS: BP 121/79; TEMP 97; O2SAT 99
== END 2024-02-01 11:41 | disposition home or self-care (01) ==
LOC: ER 08:17
DX: N39.0 Urinary tract infection, site not specified (principal)
CPT/HCPCS: 96361; 87088; 85025; 81001; 87086; 36415; 81025; 83690; 80053; 74177; 96375; 96372; 96374; 99284; Q9967; J2405; J7030; J0696; 87077; 87186